=== PATIENT | female | born 1950 | race Caucasian/White ===

== ENCOUNTER 2017-01-10 07:47 | Emergency (ER) | payer OTHER ==
--- NOTE | 2017-01-10 08:02 | EDM.PDOC ---
ED HPI Trauma - General Chief Complaint: Trauma Stated Complaint: BY AMBULANCE Time Seen by Provider: 01/10/17 08:01 Source: Reports: Patient, EMS, Old records, RN, RN notes reviewed History Limitations: Reports: No limitations - History of Present Illness INITIAL COMMENTS - FREE TEXT/NARRATIVE: Arrives from home by ambulance with reports that pt became lightheaded and fell off of the toilet this morning. Pt arrives in C-collar, on long spine board, fully immobilized. Pt reports she became dizzy while on the commode and fell. She c/o neck pain and left ankle pain. She reports that she hit her head, but did not get knocked out. She also has increase in her chronic left knee pain. Pt reports that she has been out of meclizine and has been having vertigo spells over the past several days. She does not think that she was lightheaded or had a syncopal event. Denies headache, chest pain, palpitations, or shortness of breath. Symptom Onset Date: 01/10/17 Symptom Onset Time: 07:00 (approx.) Occurred When: this morning Occurred Where: home Method of Injury: fall Severity: moderate Pain/Injury Location: Reports: head, neck, lower extremity, left Consciousness: Reports: remembers incident, remembers coming to hosp, unsure Associated Symptoms: Reports: no other symptoms Allergies/ADRs: Allergies No Known Allergies Allergy (Verified 04/27/14 11:43) Home Medications: Ambulatory Orders Aspirin [[place] Aspirin] 81 mg PO DAILY 04/27/14 [Confirmed 06/24/15] Beta-Carotene(A) W-C & E/Min [Vision Vitamins] 1 tab PO DAILY 04/27/14 [ Confirmed 06/24/15] Calcium Carbonate [Calcium] 500 mg PO DAILY 04/27/14 [Confirmed 06/24/15] FA/Lycopene/Lut/MV,Ca,Iron,Min [Centrum] 1 tab PO DAILY 04/27/14 [Confirmed ] Lisinopril 10 mg PO DAILY 04/27/14 [Confirmed 06/24/15] Pantoprazole Sodium [Pantoprazole Sodium] 40 mg PO DAILY 04/27/14 [Confirmed ] Warfarin Sodium [Jantoven] 3 mg PO DAILY 04/27/14 [Confirmed 06/24/15] Warfarin Sodium [Jantoven] 6 mg PO DAILY 04/27/14 [Confirmed 06/24/15] Zolpidem [Ambien] 5 mg PO DAILY 04/27/14 [Confirmed 06/24/15] Past Medical History Cardiovascular History: Reports: Heart valve replacement (Aortic), Hypertension Gastrointestinal History: Reports: GERD Musculoskeletal History: Reports: Arthritis, RA Neurological History: Reports: Vertigo - Past Surgical History Other Cardiovascular Surgeries/Procedures: Whipple, artifical valve Social & Family History - Family History Family Medical History: Noncontributory - Tobacco Use Smoking Status *Q: Former Smoker Tobacco Use Within Last Twelve Months: Cigarettes Years of Tobacco use: 25 Second Hand Smoke Exposure: No - Alcohol Use Alcohol Use History: No - Recreational Drug Use Recreational Drug Use: No - Living Situation & Occupation Living situation: Reports: , with spouse Occupation: retired Review of Systems - Review of Systems Review Of Systems: ROS reveals no pertinent complaints other than HPI. ED EXAM, TRAUMA (MAJOR/MULTI) - Physical Exam Exam: See Below Text/Narrative:: PRIMARY TRAUMA SURVEY: Arrives in full immobilization on long spinal board, c- collar w/head blocked and strapped. Pt awake, alert, oriented to person, place, and date. Patent nasal and oral airways. Conversant with clear speech. Spontaneous respirations, with lungs CTA B/L. Good color, no cyanosis, intact peripheral pulses at all 4 distal extremities, normal capillary refill time at all four extremities distal digits. Heart RRR, murmur w/mech. click, no rub. No bleeding. No upper or right lower extremity pain, obvious deformity, lacerations , abrasions, swelling, bruising, discoloration, or other signs of injury. Left knee tender to palpation, swollen, normal color, nl temp, no bruising, skin intact. Yesi pelvis intact, stable and non-tender. Abdomen benign to exam. Chest non-tender anteriorly, no flail chest, crepitus, or subcutaneous emphysema. CN II-XII intact. B/L shoulder and lateral upper arm to elbow subjective numbness to light and sharp touch R>>L, with mild generalized motor weakness of the Rt upper extremity, no other motor or sensory neuro. deficits. Skin clean, dry. Superficial abrasion to Rt forehead. Pt was logged rolled with maintenance of c-spine immobilization, shirt was cut free from back. No visible injury to back, no thoracic or lumbar vertebral yesi tenderness. Posterior neck tenderness throughout C-spine soft tissues and vert. bones. Long spine board removed and pt returned via log roll to supine position on firm foam padded ER gurney. SECONDARY TRAUMA SURVEY FOLLOWS: Exam Limited By: No limitations General Appearance: alert, WD/WN, no apparent distress Head: normocephalic, facial abrasions (Rt forehead). No: active bleeding Eyes: bilateral eye: EOMI, normal inspection, PERRL Ears: normal external exam, normal canal, hearing grossly normal, normal TMs Nose: normal inspection, normal mucousa, no blood Throat/Mouth: Normal inspection, Normal lips, Normal teeth, Normal gums, Normal oropharynx, Normal voice, No airway compromise Neck: normal alignment, limited range of motion, muscle spasm, painful range of motion, paraspinous muscle tender, spinous processes tender, other (C-spine cleared by CT scan) Cardiovascular: normal peripheral pulses, regular rate, rhythm, no edema, no gallop, no JVD, no rub, systolic murmur (with mech. click) Respiratory/Chest: no respiratory distress, lungs clear, normal breath sounds, no accessory muscle use, chest non-tender GI/Abdominal: normal bowel sounds, soft, non tender, no organomegaly, no distention, no abnormal bruit, no mass (Female) Exam: Deferred Rectal (Female) Exam: Deferred Back: full range of motion, normal inspection, non-tender Extremities: no evidence of injury, normal range of motion, non-tender, no pedal edema, pelvis stable Neurologic: emergency response technician II-XII nml as tested, no motor/sensory deficits, alert, normal mood/affect, oriented x 3 Skin: Normal color, Warm/dry - Nabil Coma Score Best Eye Response ([place]): (4) open spontaneously Best Verbal Response ([place]): (5) oriented Best Motor Response ([place]): (6) obeys commands Nabil Total: 15 ED TRAUMA PROCEDURES - Splinting Left Lower Extremity Splint site: ankle Pre-procedure NV status: normal Post-procedure NV status: normal Splint material: other (YUNG) Splint design: other (YUNG) Applied & form fitted by: nurse Provider post-splint application NV check: NV status normal, good position Complications: Yes EKG INTERPRETATION EKG Date: 01/10/17 Time: 09:33 Rhythm: other (SR) Rate (beats/min): 61 Max: normal P-wave: present QRS: normal ST-T: other (borderline T-wave abnormalities) QT: normal Comparison: NA - no prior EKG Course - Vital Signs Last Recorded V/S: Last Vital Signs Temp 35.9 C 01/10/17 08:49 Pulse 67 01/10/17 08:49 Resp 16 01/10/17 08:49 BP 110/35 L 01/10/17 08:49 Pulse Ox 96 01/10/17 08:49 - Orders/Labs/Meds Orders: Active Orders 24 hr Category Date Time Status EKG 12 Lead [EKG Documentation Completion] [] STAT Care 01/10/17 08:10 Active Peripheral IV Care [RC] . DIRECTED Care 01/10/17 08:10 Active CULTURE URINE [RM] Stat Lab 01/10/17 10:09 Ordered Sodium Chloride 0.9% [Saline Flush] Med 01/10/17 08:09 Active 10 ml FLUSH ASDIRECTED PRN Peripheral IV Insertion Adult [OM.PC] Stat Oth 01/10/17 08:10 Ordered Medication Orders Sodium Chloride (Saline Flush) 10 ml FLUSH ASDIRECTED PRN PRN Reason: Keep Vein Open Last Admin: 01/10/17 09:15 Dose: 10 ml Labs: Laboratory Tests 01/10/17 01/10/17 01/10/17 Range/Units 08:16 08:16 08:16 WBC 17.5 H (5.0-10.0) 10^3/uL RBC 4.10 L (4.2-5.4) 10^6/uL Hgb 13.4 (12.0-16.0) g/dL Hct 40.2 (37.0-47.0) % MCV 98.0 (80-100) fL MCH 32.7 (27.0-34.0) pg MCHC 33.3 (33.0-35.0) g/dL Plt Count 195 (150-450) 10^3/uL Neut % (Auto) 89.4 H (42.2-75.2) % Lymph % (Auto) 2.7 L (20.5-50.1) % Story % (Auto) 7.1 (2-8) % Eos % (Auto) 0.7 L (1.0-3.0) % Baso % (Auto) 0.1 (0.0-1.0) % PT 28.9 H (9.0-12.0) SEC INR 2.9 H (0.9-1.2) APTT 35.6 H (22.0-34.0) SEC Sodium 139 (135-145) mmol/L Potassium 4.3 (3.6-5.0) mmol/L Chloride 105 (101-111) mmol/L Carbon Dioxide 22.0 (21.0-31.0) mmol/L Anion Gap 16.3 BUN 21 H (7-18) mg/dL Creatinine 1.1 (0.6-1.3) mg/dL Est Cr Clr Drug Dosing TNP Estimated GFR (MDRD) 49 BUN/Creatinine Ratio 19.09 Glucose 124 H (74-105) mg/dL Calcium 9.8 (8.4-10.2) mg/dl Total Bilirubin 0.8 (0.2-1.0) mg/dL AST 42 (10-42) IU/L ALT 29 (10-60) IU/L Alkaline Phosphatase 69 (42-121) IU/L Troponin I < 0.02 (0.00-0.02) ng/ml B-Natriuretic Peptide 70 (0-100) pg/ml Total Protein 7.2 (6.7-8.2) g/dl Albumin 4.6 (3.2-5.5) g/dl Globulin 2.6 Albumin/Globulin Ratio 1.77 Amylase 110 H (28-100) U/L Lipase 33 (22-51) U/L Urine Color (YELLOW) Urine Appearance (CLEAR) Urine pH (5.0-9.0) Ur Specific [place] (1.005-1.030) Urine Protein (NEGATIVE) Urine Glucose (UA) (NEGATIVE) Urine Ketones (NEGATIVE) Urine Occult Blood (NEGATIVE) Urine Nitrite (NEGATIVE) Urine Bilirubin (NEGATIVE) Urine Urobilinogen (0.2-1.0) mg/dL Ur Leukocyte Esterase (NEGATIVE) Urine RBC /HPF Urine WBC (0-5/HPF) /HPF Ur Epithelial Cells /HPF Urine Bacteria (0-FEW/HPF) /HPF Urine Opiates Screen (NEGATIVE) Ur Oxycodone Screen (NEGATIVE) Urine Methadone Screen (NEGATIVE) Ur Barbiturates Screen (NEGATIVE) U Tricyclic Antidepress (NEGATIVE) Ur Phencyclidine Scrn (NEGATIVE) Ur Amphetamine Screen (NEGATIVE) U Methamphetamines Scrn (NEGATIVE) Urine MDMA Screen (NEGATIVE) U Benzodiazepines Scrn (NEGATIVE) Urine Cocaine Screen (NEGATIVE) U Marijuana (THC) Screen (NEGATIVE) Ethyl Alcohol < 5 mg/dL 01/10/17 01/10/17 Range/Units 09:48 09:48 WBC (5.0-10.0) 10^3/uL RBC (4.2-5.4) 10^6/uL Hgb (12.0-16.0) g/dL Hct (37.0-47.0) % MCV (80-100) fL MCH (27.0-34.0) pg MCHC (33.0-35.0) g/dL Plt Count (150-450) 10^3/uL Neut % (Auto) (42.2-75.2) % Lymph % (Auto) (20.5-50.1) % Story % (Auto) (2-8) % Eos % (Auto) (1.0-3.0) % Baso % (Auto) (0.0-1.0) % PT (9.0-12.0) SEC INR (0.9-1.2) APTT (22.0-34.0) SEC Sodium (135-145) mmol/L Potassium (3.6-5.0) mmol/L Chloride (101-111) mmol/L Carbon Dioxide (21.0-31.0) mmol/L Anion Gap BUN (7-18) mg/dL Creatinine (0.6-1.3) mg/dL Est Cr Clr Drug Dosing Estimated GFR (MDRD) BUN/Creatinine Ratio Glucose (74-105) mg/dL Calcium (8.4-10.2) mg/dl Total Bilirubin (0.2-1.0) mg/dL AST (10-42) IU/L ALT (10-60) IU/L Alkaline Phosphatase (42-121) IU/L Troponin I (0.00-0.02) ng/ml B-Natriuretic Peptide (0-100) pg/ml Total Protein (6.7-8.2) g/dl Albumin (3.2-5.5) g/dl Globulin Albumin/Globulin Ratio Amylase (28-100) U/L Lipase (22-51) U/L Urine Color Dark yellow (YELLOW) Urine Appearance Turbid (CLEAR) Urine pH 6.0 (5.0-9.0) Ur Specific [place] 1.015 (1.005-1.030) Urine Protein Negative (NEGATIVE) Urine Glucose (UA) Negative (NEGATIVE) Urine Ketones Negative (NEGATIVE) Urine Occult Blood Trace-intact H (NEGATIVE) Urine Nitrite Positive H (NEGATIVE) Urine Bilirubin Negative (NEGATIVE) Urine Urobilinogen 0.2 (0.2-1.0) mg/dL Ur Leukocyte Esterase Moderate H (NEGATIVE) Urine RBC 5-10 H /HPF Urine WBC >100 H (0-5/HPF) /HPF Ur Epithelial Cells Rare /HPF Urine Bacteria Many H (0-FEW/HPF) /HPF Urine Opiates Screen Negative (NEGATIVE) Ur Oxycodone Screen Negative (NEGATIVE) Urine Methadone Screen Negative (NEGATIVE) Ur Barbiturates Screen Negative (NEGATIVE) U Tricyclic Antidepress Negative (NEGATIVE) Ur Phencyclidine Scrn Negative (NEGATIVE) Ur Amphetamine Screen Negative (NEGATIVE) U Methamphetamines Scrn Negative (NEGATIVE) Urine MDMA Screen Negative (NEGATIVE) U Benzodiazepines Scrn Negative (NEGATIVE) Urine Cocaine Screen Negative (NEGATIVE) U Marijuana (THC) Screen Negative (NEGATIVE) Ethyl Alcohol mg/dL Meds: Medications Generic Name Dose Route Start Last Admin Trade Name Freq PRN Reason Stop Dose Admin Sodium Chloride 10 ml 01/10/17 08:09 01/10/17 09:15 Saline Flush FLUSH 10 ml ASDIRECTED PRN Administration Keep Vein Open Discontinued Medications Generic Name Dose Route Start Last Admin Trade Name Freq PRN Reason Stop Dose Admin Sodium Chloride 1,000 mls @ 999 mls/hr 01/10/17 09:00 01/10/17 09:15 Normal Saline IV 01/10/17 10:00 999 mls/hr .BOLUS ONE Administration Ceftriaxone Sodium 1 gm/ 50 mls @ 100 mls/hr 01/10/17 10:10 Sodium Chloride IV 01/10/17 10:39 ONETIME ONE Pt declines pain medication. - Radiology Interpretation Free Text/Narrative:: XRay left ankle, and left knee: no fractures per Rad. report. CT Head: no IC hemorrhage, see Rad. report. CT C-spine: no fractures, see Rad. report. CT Results Date: 01/10/17 - Re-Assessments/Exams Free Text/Narrative Re-Assessment/Exam: 01/10/17 11:07 I explained the exam findings, results of all diagnostic tests, working diagnosis, and any potential or additionally considered diagnoses, treatment/ disposition plan, self/home care instructions, rational for the diagnosis/ treatment plan/disposition plan, anticipated course of illness, and follow up instructions to the pt and/or pts family or guardian. The pt and/or pts family or guardian acknowledges understanding of the above explanation(s), and of the signs and symptoms which should prompt the return of the pt to the ER should those or any other concerning symptoms develop. Departure - Departure Time of Disposition: 11:08 Disposition: Home, Self-Care 01 Condition: fair Clinical Impression: Fall as cause of accidental injury at home as place of occurrence, Vertigo UTI (urinary tract infection) Qualifiers: Urinary tract infection type: site unspecified Hematuria presence: without hematuria Qualified Code(s): N39.0 - Urinary tract infection, site not specified Abrasion of forehead Qualifiers: Encounter type: initial encounter Qualified Code(s): S00.81XA - Abrasion of other part of head, initial encounter Ankle sprain Qualifiers: Encounter type: initial encounter Involved ligament of ankle: unspecified ligament Laterality: left Qualified Code(s): S93.402A - Sprain of unspecified ligament of left ankle, initial encounter Neck strain Qualifiers: Encounter type: initial encounter Qualified Code(s): S16.1XXA - Strain of muscle, fascia and tendon at neck level, initial encounter Instructions: Abrasion, [id number], Ankle Sprain, [id number], Urinary Tract Infection, Adult, [id number], Concussion, Adult, [id number] Referrals: Cali Hernández MD [Primary Care Provider] - Forms: ED Department Discharge Additional Instructions: Rx: Cipro 500mg Rx: Meclizine 25mg Use walker until ankle pain resolves and you are steady on your feet. Follow up for Protime/INR lab in 2 to 3 days and see your doctor for recheck. Return to ER if worse at any time. - My Orders Last 24 Hours: My Active Orders 01/10/17 08:09 Sodium Chloride 0.9% [Saline Flush] 10 ml FLUSH ASDIRECTED PRN 01/10/17 08:10 EKG 12 Lead [EKG Documentation Completion] [RC] STAT Peripheral IV Care [RC] . DIRECTED Peripheral IV Insertion Adult [OM.PC] Stat 01/10/17 10:09 CULTURE URINE [RM] Stat - Assessment/Plan Last 24 Hours: My Active Orders 01/10/17 08:09 Sodium Chloride 0.9% [Saline Flush] 10 ml FLUSH ASDIRECTED PRN 01/10/17 08:10 EKG 12 Lead [EKG Documentation Completion] [RC] STAT Peripheral IV Care [RC] . DIRECTED Peripheral IV Insertion Adult [OM.PC] Stat 01/10/17 10:09 CULTURE URINE [RM] Stat
[2017-01-10] MEDS ORDERED: Sodium Chloride 0.9% 10 ML Syringe FLUSH PRN (08:09)
[2017-01-10 08:45] LABS: CHLORIDE,CL 105 mmol/L (101-111); SODIUM,NA 139 mmol/L (135-145)
[2017-01-10 08:51] VITALS: BP 110/35
--- NOTE | 2017-01-10 08:59 | CR ---
Clinical history: 66-year-old female injured fall. Interpretation: AP/lateral views left knee confirm some chronic mild reactive arthritic changes thic kening involving the medial knee joint compartment and patellofemoral joint. No sign of joint effusion, left knee fracture dislocation or radiopaque loose joint body. No foreign bodies.
--- NOTE | 2017-01-10 08:59 | CR ---
Clinical history: 66-year-old female injured left from fall (anticoagulant). Interpretation: AP supine portable chest (sternotomy wires and dressing down snaps). Normal cardiac silhouette and pulmonary vascularity. No alveolar edema or dependent effusion. No lung mass, hilar lymphadenopathy or focal lobar pneumonia. No atelectasis/collapse. No pneumothorax. CONCLUSION: No acute cardiopulmonary abnormality.
[2017-01-10] MEDS ORDERED: Sodium Chloride 0.9% 1,000 ML IV ONE (09:00)
--- NOTE | 2017-01-10 09:00 | CT ---
Clinical history: 66-year-old female head trauma associated with fall (patient on anticoagulants). Scan technique: Volume acquisition of data emergency unenhanced CT scan cervical spine obtained with patient lying supine on the Siemens multi slice CT scanner [place], [place]. All data archived in the PACS system for storage, reformatting, study. Interpretation: 1. Reversal of usual cervical lordosis associated with chronic multilevel cervical disc disease i.e. interspace narrowing, endplate sclerosis and exuberant hypertrophic marginal/uncinate spur formatio n C4-5, C5-6 and C6-7 level (bony fusion of the latter). 2. No sign of prevertebral soft tissue swelling, acute cervical fracture or spondylolisthesis. 3. Unenhanced cervical spinal cord appears "draped" over the posterior cervical vertebra (apex at C5 ) increasing the possibility of cord contusion. Clinical? 4. Chronic reactive arthritic changes but no sign of jump locked facets. 5. Sternoclavicular joints symmetrically intact. Normal first ribs. Lung apices clear. CONCLUSION: Chronic abnormalities cervical spine. No acute fracture.
--- NOTE | 2017-01-10 09:01 | CR ---
Clinical history: 66-year-old female left ankle pain associated with bathroom fall. Interpretation: Bimalleolar soft tissue swelling. No sign of left ankle fracture or disruption of the tibiotalar mortise joint symmetry. (Tiny heel spur at insertion plantar aponeurosis base of the os calcis). CONCLUSION: Sprain. No fracture or dislocation left ankle.
--- NOTE | 2017-01-10 09:14 | CT ---
Clinical history: 66-year-old anticoagulated (Coumadin) hypertensive 156 pound female with an acute head injury associated with bathroom fall. Scan technique: Volume acquisition of data emergency unenhanced CT scan of the head obtained with pa tient lying supine on the Siemens multi slice scanner [facility]. All data archived in the PAC system for storage and study (bone/brain windows). Interpretation: Abnormal..... But no acute new intracranial abnormality I i.e. unchanged. 1. Uniformly thick bony calvarium without sign of skull fracture, underlying brain contusion or acut e abnormal extracerebral/intracranial epidural or subdural hematoma. 2. 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 ("ballooning" left lateral ventricle, unchanged) 3. Scattered smaller microvascular ischemic lesions periventricular white matter both cerebral hemis pheres but no signs of acute intracerebral, intraventricular or subarachnoid bleed. 4. No new supratentorial or posterior fossa mass lesion. No hydrocephalus. 5. Physiologic midline pineal and symmetric choroid plexus calcifications. Cerebellum and brainstem unremarkable. 6. Symmetric clear pneumatization of the mastoid and paranasal sinuses. Midline nasal septum.
[2017-01-10] MEDS ORDERED: cefTRIAXone 1 GM in Sodium Chloride 0.9% 50 ML IV ONE (10:10)
--- NOTE | 2017-01-11 07:17 | EKG ---
01/10/2017- LATANYA FABIAN - EKG done on a 66-year-old female showing sinus rhythm, normal axis, heart rate of 61 beats per minute. No acute ST wave changes. Normal intervals. [facility] /[id number]
== END 2017-01-10 11:55 | disposition home or self-care (01) ==
LOC: DL.ED 07:47
DX: S16.1XXA Strain of muscle, fascia and tendon at neck level, initial encounter (principal); S93.402A Sprain of unspecified ligament of left ankle, initial encounter; S00.81XA Abrasion of other part of head, initial encounter; N39.0 Urinary tract infection, site not specified; I10 Essential (primary) hypertension; K21.9 Gastro-esophageal reflux disease without esophagitis; M06.9 Rheumatoid arthritis, unspecified; M19.90 Unspecified osteoarthritis, unspecified site; Z79.899 Other long term (current) drug therapy; Z79.82 Long term (current) use of aspirin; Z87.891 Personal history of nicotine dependence; W18.11XA Fall from or off toilet without subsequent striking against object, initial encounter; Y92.009 Unspecified place in unspecified non-institutional (private) residence as the place of occurrence of the external cause
CPT/HCPCS: 36415; 70450; 71010; 72125; 73560; 73610; 80053; 80305; 81001; 82150; 83690; 83880; 84484; 85025; 85610; 85730; 87086; 93005; 93010; 96361; 96365; 99285; G0480; J0696; J7030; J7050; 87088; 87186

== ENCOUNTER 2019-07-20 09:08 | Emergency (ER) | payer OTHER, MEDICARE ==
--- NOTE | 2019-07-20 09:24 | EDM.PDOC ---
ED HPI GENERAL MEDICAL PROBLEM - General Chief Complaint: Back Pain or Injury Stated Complaint: L LEG [id number] Time Seen by Provider: 07/20/19 09:23 Source of Information: Reports: Patient, Old Records, RN, RN Notes Reviewed History Limitations: Reports: No Limitations - History of Present Illness INITIAL COMMENTS - FREE TEXT/NARRATIVE: Pt presents from home by POV with c/o severe sciatica type pain from the low back through the left buttock to the left ankle/heel. Pt reports Hx of chronic low back pain with DDD, and Hx of remote surgery at L4/L5. She states she has had epidural steroid injections without relief. Recently she has been seeing an acls specialist and has been referred to a pain specialist but hasn't been seen there. She denies saddle area numbness, loss of bowel or bladder control, or motor weakness. Duration: Week(s): (3), Constant, Getting Worse Location: Reports: Back, Lower Extremity, Left Quality: Reports: Ache, Burning, Same as Previous Episode, Sharp Severity: Severe Improves with: Reports: None Worsens with: Reports: None Associated Symptoms: Reports: No Other Symptoms Treatments GUNNER'S MATE M: Reports: Acetaminophen, NSAIDS, Other Medication(s) - Related Data Allergies Allergy/AdvReac Type Severity Reaction Status Date / Time No Known Allergies Allergy Verified 04/27/14 11:43 Home Meds: Home Meds Aspirin [[place] Aspirin] 81 mg PO DAILY 04/27/14 [History] Beta-Carotene(A) W-C & E/Min [Vision Vitamins] 1 tab PO DAILY 04/27/14 [History] Calcium Carbonate [Calcium] 500 mg PO DAILY 04/27/14 [History] FA/Lycopene/Lut/MV,Ca,Iron,Min [Centrum] 1 tab PO DAILY 04/27/14 [History] Lisinopril 10 mg PO DAILY 04/27/14 [History] Pantoprazole Sodium 40 mg PO DAILY 04/27/14 [History] Warfarin Sodium [Jantoven] 3 mg PO DAILY 04/27/14 [History] Warfarin Sodium [Jantoven] 6 mg PO DAILY 04/27/14 [History] Zolpidem [Ambien] 5 mg PO DAILY 04/27/14 [History] Past Medical History Cardiovascular History: Reports: Heart Valve Replacement, Hypertension Gastrointestinal History: Reports: GERD Musculoskeletal History: Reports: Arthritis, Back Pain, Chronic, RA Neurological History: Reports: Vertigo - Past Surgical History Other Cardiovascular Surgeries/Procedures: Whipple, artifical valve Social & Family History - Family History Family Medical History: Noncontributory - Living Situation & Occupation Living situation: Reports: , with Spouse Occupation: Retired ED ROS GENERAL - Review of Systems Review Of Systems: ROS reveals no pertinent complaints other than HPI. ED EXAM,LOWER BACK PAIN/INJURY - Physical Exam Exam: See Below Exam Limited By: No Limitations General Appearance: Alert, No Apparent Distress, Mild Distress (Due to pain) Throat/Mouth: Normal Voice Head: Atraumatic, Normocephalic Neck: Normal Inspection Cardiovascular: Normal Peripheral Pulses GI/Abdominal: Normal Bowel Sounds, Soft, Non-Tender, No Organomegaly, No Distention, No Abnormal Bruit, No Mass Back Exam: Decreased Range of Motion (Lumbar), Paraspinal Tenderness (mild, lower lumbar). No: CVA Tenderness (L), CVA Tenderness (R), Vertebral Tenderness Extremities: Normal Range of Motion, Normal Capillary Refill, Leg Pain (Left). No: Joint Swelling, Naima's Sign Neurological: Alert, Normal Mood/Affect, Normal Dorsiflexion, Normal Plantar Flexion, No Motor/Sensory Deficits, Oriented x 3, Straight Leg Raise (L), Difficulty Walking (Due to pain). No: Saddle Anesthesia Psychiatric: Tearful Skin Exam: Warm, Dry, Intact, Normal Color, No Rash Course - Orders/Labs/Meds Meds: Medications Discontinued Medications Generic Name Dose Route Start Last Admin Trade Name Tobiasq PRN Reason Stop Dose Admin Hydrocodone Bitart/Acetaminophen 1 tab 07/20/19 09:30 [place] 325-5 Mg PO 07/20/19 09:31 ONETIME ONE Dexamethasone 8 mg 07/20/19 09:28 Dexamethasone IM 07/20/19 09:29 ONETIME ONE Departure - Departure Time of Disposition: 09:34 Disposition: Home, Self-Care 01 Condition: Good Clinical Impression: Left lumbar radiculopathy - Discharge Information *PRESCRIPTION DRUG MONITORING PROGRAM REVIEWED*: No *COPY OF PRESCRIPTION DRUG MONITORING REPORT IN PATIENT NIKOLAI: No Instructions: Lumbosacral Radiculopathy Forms: ED Department Discharge Additional Instructions: Rx: Decadron (Dexamethasone) 4mg Rx: [place] (Hydrocodone APAP) 5mg/325mg *Do not drive while under the influence of this medication. Use a stool softener or eat prunes, and drink plenty of water to prevent constipation while taking [place] for pain. Follow up in clinic as planned.
[2019-07-20] MEDS ORDERED: Dexamethasone 4 MG/ML SDV IM ONE (09:28)
[2019-07-20] MEDS ORDERED: Acetaminophen/HYDROcodone 325-5 MG Tab PO ONE (09:30)
[2019-07-20 09:44] VITALS: BP 125/71; PULSE 63
== END 2019-07-20 10:12 | disposition home or self-care (01) ==
LOC: DL.ED 09:08
DX: M54.16 Radiculopathy, lumbar region (principal); I10 Essential (primary) hypertension; K21.9 Gastro-esophageal reflux disease without esophagitis; Z79.82 Long term (current) use of aspirin; Z79.899 Other long term (current) drug therapy; Z79.01 Long term (current) use of anticoagulants
CPT/HCPCS: 96372; 99283; A9270; J1100

== ENCOUNTER 2019-08-11 09:46 | Emergency (ER) | payer OTHER, MEDICARE ==
[2019-08-11 09:56] VITALS: BP 106/93; PULSE 97
[2019-08-11 11:18] LABS: ANION GAP 13.2; CHLORIDE,CL 100 mmol/L (101-111); SODIUM,NA 135 mmol/L (135-145)
[2019-08-11] MEDS ORDERED: Ciprofloxacin 500 MG Tab PO ONE (13:11)
[2019-08-11] MEDS ORDERED: HYDROmorphone 1 MG/ML Syringe IVPUSH ONE (13:12)
--- NOTE | 2019-08-11 13:16 | EDM.PDOC ---
Scribed by Regina Vasquez 08/11/19 1316 for Zander Tompkins PA ED HPI GENERAL MEDICAL PROBLEM - General Chief Complaint: Lower Extremity Injury/Pain Stated Complaint: LEFT SIDE PAIN Time Seen by Provider: 08/11/19 10:23 Source of Information: Reports: Patient, RN, RN Notes Reviewed History Limitations: Reports: No Limitations - History of Present Illness INITIAL COMMENTS - FREE TEXT/NARRATIVE: Patient is a 69-year-old female patient who presents to the ER with left sided pain with sciatica to the left leg pain. At 7 a.m. this morning patient took Dilaudid 1.5 pills and didn't help much. Two days the patient took 2 pills which did not help much either. She has been on steroids in the past. She has not been doing PT. Patient also states she has a lump in her buttocks and in knee. Patient was hospitalized here in July and transferred to [facility] in [place] on 07/29/19. She had a neurosurgical evaluation who recommended a surgical oncology eval at [facility] for her multiple pulmonary nodules. She was discharged from [facility] on 08/02/19 with p.o. Dilaudid, Fentanyl, Gabapentin, Lisinopril and Levothyroxine. Patient's primary care provider is Heather Chavis who prescribed Fentanyl 25 mcg and patient is to follow up with her. Onset: Gradual Duration: Getting Worse Location: Reports: Back, Lower Extremity, Left Quality: Reports: Ache Severity: Severe Improves with: Reports: None Worsens with: Reports: None Associated Symptoms: Reports: No Other Symptoms Left Leg Pain Score (Numeric/FACES): 9 - Related Data Allergies Allergy/AdvReac Type Severity Reaction Status Date / Time No Known Allergies Allergy Verified 08/11/19 09:56 Home Meds: Home Meds FA/Lycopene/Lut/MV,Ca,Iron,Min [Centrum] 1 tab PO DAILY 04/27/14 [History] Lisinopril 2.5 mg PO DAILY 04/27/14 [History] Pantoprazole Sodium 40 mg PO BID 04/27/14 [History] Zolpidem [Ambien] 5 mg PO DAILY 04/27/14 [History] Acetaminophen [Tylenol Extra Strength] 500 mg PO Q6HR PRN 07/25/19 [History] Aspirin [Ecotrin EC] 325 mg PO DAILY 07/25/19 [History] Ferrous Sulfate 325 mg PO DAILY 07/25/19 [History] Levothyroxine 25 mcg PO DAILY 07/25/19 [History] Ascorbate Calcium [Vitamin C] 500 mg PO DAILY 07/29/19 [History] Calcium Carbonate/Vitamin D3 [Calcium 600 + Vit D 400 Softgl] 1 each PO DAILY [History] Potassium Chloride 10 meq PO DAILY 07/29/19 [History] fentaNYL [Duragesic] 50 mcg TRDERM Q72H patch 07/30/19 [Rx] Gabapentin [Neurontin] 300 mg PO TID 08/11/19 [History] HYDROmorphone [Dilaudid] 2 mg PO Q4H PRN 08/11/19 [History] Past Medical History HEENT History: Reports: Impaired Vision Other HEENT History: wears glasses Cardiovascular History: Reports: Heart Valve Replacement, Hypertension Respiratory History: Reports: None Gastrointestinal History: Reports: GERD Genitourinary History: Reports: Other (See Below) (chronic kidney disease III) 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: Musculoskeletal History: Reports: Arthritis, Back Pain, Chronic, Osteoarthritis , RA, Other (See Below) ( steroid dependence) Neurological History: Reports: CVA, Vertigo Psychiatric History: Reports: None Endocrine/Metabolic History: Reports: Hypothyroidism Hematologic History: Reports: None Immunologic History: Reports: None Oncologic (Cancer) History: Reports: None Dermatologic History: Reports: None - Infectious Disease History Infectious Disease History: Reports: Chicken Pox, Shingles - Past Surgical History Head Surgeries/Procedures: Reports: None HEENT Surgical History: Reports: Tonsillectomy Cardiovascular Surgical History: Reports: Valve Replacement, Other (See Below) Other Cardiovascular Surgeries/Procedures: Whipple, artifical valve GI Surgical History: Reports: Colonoscopy Neurological Surgical History: Reports: Lumbar Spine Other Neurological Surgeries/Procedures: fused Musculoskeletal Surgical History: Reports: Other (See Below) Other Musculoskeletal Surgeries/Procedures:: Back Surgery Fused L4-L5 Social & Family History - Family History Family Medical History: Noncontributory - Tobacco Use Smoking Status *Q: Never Smoker Second Hand Smoke Exposure: No - Caffeine Use Caffeine Use: Reports: Tea - Recreational Drug Use Recreational Drug Use: No - Living Situation & Occupation Living situation: Reports: , with Spouse Occupation: Retired Review of Systems - Review of Systems Review Of Systems: Comprehensive ROS is negative, except as noted in HPI. ED EXAM, GENERAL - Physical Exam Exam: See Below Exam Limited By: No Limitations General Appearance: Other (pain left hip. Tearful. ) Eye Exam: Bilateral Eye: EOMI, Normal Inspection, PERRL Ears: Normal External Exam, Normal Canal, Hearing Grossly Normal, Normal TMs Nose: Normal Inspection, Normal Mucosa, No Blood Throat/Mouth: Normal Inspection, Normal Lips, Normal Teeth, Normal Gums, Normal Oropharynx, Normal Voice, No Airway Compromise Head: Atraumatic, Normocephalic Neck: Normal Inspection, Supple, Non-Tender, Full Range of Motion Respiratory/Chest: No Respiratory Distress, Lungs Clear, Normal Breath Sounds, No Accessory Muscle Use, Chest Non-Tender Cardiovascular: Normal Peripheral Pulses, Regular Rate, Rhythm, No Edema, No Gallop, No JVD, No Murmur, No Rub GI/Abdominal: Normal Bowel Sounds, Soft, Non-Tender, No Organomegaly, No Distention, No Abnormal Bruit, No Mass (Female) Exam: Deferred Rectal (Female) Exam: Deferred Back Exam: Other (left lower back pain with sciatica to left lower extremity) Extremities: Other (as above) Neurological: Alert, Oriented, CN II-XII Intact, Normal Cognition, Normal Gait, Normal Reflexes, No Motor/Sensory Deficits Psychiatric: Normal Affect, Normal Mood Skin Exam: Warm, Dry, Intact, Normal Color, No Rash Lymphatic: No Adenopathy Course - Vital Signs Last Recorded V/S: Last Vital Signs Temp 36.2 C 08/11/19 09:50 Pulse 97 08/11/19 09:50 Resp 18 08/11/19 09:50 BP 106/93 H 08/11/19 09:50 Pulse Ox 97 08/11/19 09:50 - Orders/Labs/Meds Orders: Active Orders 24 hr Category Date Time Status CULTURE URINE [RM] Stat Lab 08/11/19 12:04 Received HYDROmorphone [Dilaudid] Med 08/11/19 13:12 Once 1 mg IVPUSH ONETIME ONE Medication Orders Hydromorphone HCl (Dilaudid) 1 mg IVPUSH ONETIME ONE Stop: 08/11/19 13:13 Labs: Laboratory Tests 08/11/19 08/11/19 08/11/19 Range/Units 10:44 10:44 12:04 WBC 9.2 (5.0-10.0) 10^3/uL RBC 4.25 (4.2-5.4) 10^6/uL Hgb 13.1 (12.0-16.0) g/dL Hct 39.6 (37.0-47.0) % MCV 93.2 (80-100) fL MCH 30.8 (27.0-34.0) pg MCHC 33.1 (33.0-35.0) g/dL Plt Count 234 (150-450) 10^3/uL Neut % (Auto) 73.3 (42.2-75.2) % Lymph % (Auto) 12.3 L (20.5-50.1) % Moca % (Auto) 10.3 H (2-8) % Eos % (Auto) 3.5 H (1.0-3.0) % Baso % (Auto) 0.6 (0.0-1.0) % Sodium 135 (135-145) mmol/L Potassium 4.2 (3.6-5.0) mmol/L Chloride 100 L (101-111) mmol/L Carbon Dioxide 26.0 (21.0-31.0) mmol/L Anion Gap 13.2 BUN 16 (7-18) mg/dL Creatinine 0.8 (0.6-1.3) mg/dL Est Cr Clr Drug Dosing 51.01 mL/min Estimated GFR (MDRD) > 60 BUN/Creatinine Ratio 20.00 Glucose 106 H (74-105) mg/dL Calcium 9.8 (8.4-10.2) mg/dl Total Bilirubin 0.6 (0.2-1.0) mg/dL AST 20 (10-42) IU/L ALT 26 (10-60) IU/L Alkaline Phosphatase 101 (42-121) IU/L Total Protein 7.2 (6.7-8.2) g/dl Albumin 3.8 (3.2-5.5) g/dl Globulin 3.4 Albumin/Globulin Ratio 1.12 Urine Color Yellow (YELLOW) Urine Appearance Cloudy (CLEAR) Urine pH 5.5 (5.0-9.0) Ur Specific Blue 1.015 (1.005-1.030) Urine Protein Negative (NEGATIVE) Urine Glucose (UA) Negative (NEGATIVE) Urine Ketones Negative (NEGATIVE) Urine Occult Blood Trace-intact H (NEGATIVE) Urine Nitrite Positive H (NEGATIVE) Urine Bilirubin Negative (NEGATIVE) Urine Urobilinogen 1.0 (0.2-1.0) mg/dL Ur Leukocyte Esterase Large H (NEGATIVE) Urine RBC 5-10 H /HPF Urine WBC >100 H (0-5/HPF) /HPF Ur Epithelial Cells Few (NOT SEEN) /HPF Urine Bacteria Many H (0-FEW/HPF) /HPF Urine Opiates Screen (NEGATIVE) Ur Oxycodone Screen (NEGATIVE) Urine Methadone Screen (NEGATIVE) Ur Barbiturates Screen (NEGATIVE) U Tricyclic Antidepress (NEGATIVE) Ur Phencyclidine Scrn (NEGATIVE) Ur Amphetamine Screen (NEGATIVE) U Methamphetamines Scrn (NEGATIVE) Urine MDMA Screen (NEGATIVE) U Benzodiazepines Scrn (NEGATIVE) Urine Cocaine Screen (NEGATIVE) U Marijuana (THC) Screen (NEGATIVE) 08/11/19 Range/Units 12:04 WBC (5.0-10.0) 10^3/uL RBC (4.2-5.4) 10^6/uL Hgb (12.0-16.0) g/dL Hct (37.0-47.0) % MCV (80-100) fL MCH (27.0-34.0) pg MCHC (33.0-35.0) g/dL Plt Count (150-450) 10^3/uL Neut % (Auto) (42.2-75.2) % Lymph % (Auto) (20.5-50.1) % Moca % (Auto) (2-8) % Eos % (Auto) (1.0-3.0) % Baso % (Auto) (0.0-1.0) % Sodium (135-145) mmol/L Potassium (3.6-5.0) mmol/L Chloride (101-111) mmol/L Carbon Dioxide (21.0-31.0) mmol/L Anion Gap BUN (7-18) mg/dL Creatinine (0.6-1.3) mg/dL Est Cr Clr Drug Dosing mL/min Estimated GFR (MDRD) BUN/Creatinine Ratio Glucose (74-105) mg/dL Calcium (8.4-10.2) mg/dl Total Bilirubin (0.2-1.0) mg/dL AST (10-42) IU/L ALT (10-60) IU/L Alkaline Phosphatase (42-121) IU/L Total Protein (6.7-8.2) g/dl Albumin (3.2-5.5) g/dl Globulin Albumin/Globulin Ratio Urine Color (YELLOW) Urine Appearance (CLEAR) Urine pH (5.0-9.0) Ur Specific Blue (1.005-1.030) Urine Protein (NEGATIVE) Urine Glucose (UA) (NEGATIVE) Urine Ketones (NEGATIVE) Urine Occult Blood (NEGATIVE) Urine Nitrite (NEGATIVE) Urine Bilirubin (NEGATIVE) Urine Urobilinogen (0.2-1.0) mg/dL Ur Leukocyte Esterase (NEGATIVE) Urine RBC /HPF Urine WBC (0-5/HPF) /HPF Ur Epithelial Cells (NOT SEEN) /HPF Urine Bacteria (0-FEW/HPF) /HPF Urine Opiates Screen Positive H (NEGATIVE) Ur Oxycodone Screen Positive H (NEGATIVE) Urine Methadone Screen Negative (NEGATIVE) Ur Barbiturates Screen Negative (NEGATIVE) U Tricyclic Antidepress Negative (NEGATIVE) Ur Phencyclidine Scrn Negative (NEGATIVE) Ur Amphetamine Screen Negative (NEGATIVE) U Methamphetamines Scrn Negative (NEGATIVE) Urine MDMA Screen Negative (NEGATIVE) U Benzodiazepines Scrn Negative (NEGATIVE) Urine Cocaine Screen Negative (NEGATIVE) U Marijuana (THC) Screen Negative (NEGATIVE) Meds: Medications Generic Name Dose Route Start Last Admin Trade Name Freq PRN Reason Stop Dose Admin Hydromorphone HCl 1 mg 08/11/19 13:12 Dilaudid IVPUSH 08/11/19 13:13 ONETIME ONE Discontinued Medications Generic Name Dose Route Start Last Admin Trade Name Freq PRN Reason Stop Dose Admin Ciprofloxacin 500 mg 08/11/19 13:11 Ciprofloxacin Hcl PO 08/11/19 13:12 ONETIME ONE Departure - Departure Time of Disposition: 13:13 Disposition: Home, Self-Care 01 Condition: Fair Clinical Impression: Chronic low back pain with left-sided sciatica Qualifiers: Back pain laterality: left Qualified Code(s): M54.42 - Lumbago with sciatica, left side; G89.29 - Other chronic pain UTI (urinary tract infection) Qualifiers: Urinary tract infection type: site unspecified Hematuria presence: with hematuria Qualified Code(s): N39.0 - Urinary tract infection, site not specified ; R31.9 - Hematuria, unspecified - Discharge Information *PRESCRIPTION DRUG MONITORING PROGRAM REVIEWED*: Not Applicable *COPY OF PRESCRIPTION DRUG MONITORING REPORT IN PATIENT NIKOLAI: Not Applicable Instructions: Urinary Tract Infection, Adult, [id number], Chronic Back Pain, [id number] Forms: ED Department Discharge Care Plan Goals: The patient was advised of the examination and lab results during the visit. The patient was given an oral dose of Cipro for her urinary tract infection and an IV dose of Dilaudid for her back pain while in the ED. The patient was discharged with a script for Cipro (500 mg) #6 to take 1 by mouth 2 times per day. The patient should follow-up with her primary care facility for continued evaluation of her back pain. If the patient has any additional symptoms or concerns, the patient should follow-up with her primary care facility or return to the emergency department. - My Orders Last 24 Hours: My Active Orders 08/11/19 12:04 CULTURE URINE [RM] Stat 08/11/19 13:12 HYDROmorphone [Dilaudid] 1 mg IVPUSH ONETIME ONE - Assessment/Plan Last 24 Hours: My Active Orders 08/11/19 12:04 CULTURE URINE [RM] Stat 08/11/19 13:12 HYDROmorphone [Dilaudid] 1 mg IVPUSH ONETIME ONE I have read and agree with the documentation that has been completed regarding this visit. By signing this record, I attest that the documentation was completed in my physical presence and is an accurate record of the encounter.
== END 2019-08-11 13:30 | disposition home or self-care (01) ==
LOC: DL.ED 09:46
DX: M54.42 Lumbago with sciatica, left side (principal); N39.0 Urinary tract infection, site not specified; R31.9 Hematuria, unspecified; I12.9 Hypertensive chronic kidney disease with stage 1 through stage 4 chronic kidney disease, or unspecified chronic kidney disease; N18.3 Chronic kidney disease, stage 3 (moderate); E03.9 Hypothyroidism, unspecified; Z86.73 Personal history of transient ischemic attack (TIA), and cerebral infarction without residual deficits; Z79.82 Long term (current) use of aspirin; Z79.890 Hormone replacement therapy; Z79.899 Other long term (current) drug therapy
CPT/HCPCS: 36415; 80053; 80305; 81001; 85025; 87086; 87088; 87186; 96374; 99283; A9270; J1170

== ENCOUNTER 2019-08-22 12:30 | Emergency (ER) | payer OTHER, MEDICARE ==
[2019-08-22] MEDS ORDERED: HYDROmorphone 1 MG/ML Syringe IVPUSH ONE (13:02)
[2019-08-22] MEDS: Sodium Chloride 0.9% 10 ML Syringe FLUSH PRN ×2 (13:06→13:07)
[2019-08-22 13:19] VITALS: BP 106/63; PULSE 74
--- NOTE | 2019-08-22 13:20 | EDM.PDOC ---
ED HPI GENERAL MEDICAL PROBLEM - General Chief Complaint: Back Pain or Injury Stated Complaint: [facility] Time Seen by Provider: 08/22/19 12:45 Source of Information: Reports: Patient History Limitations: Reports: No Limitations - History of Present Illness INITIAL COMMENTS - FREE TEXT/NARRATIVE: This 69 yo female patient was brought to the ED by [facility] due to increased lower back pain radiating to her left lower extremity. The patient reports her lower back pain has been getting worse despite increased pain medications. The patient reports her pain is a 10/10 with any movement. The patient is scheduled to be seen at the [facility] in September for continued evaluation of her lower back and her pain. The patient has been working with Heather Chavis (PCP) for temporary symptom relief. The patient reports her pain got so bad today that she had to call the ambulance to bring her here. The patient reports she has been taking her pain medications as directed and has been changing her Fentanyl patch as directed. Onset: Unknown/Unsure Duration: Constant, Getting Worse Location: Reports: Back (lower back with radiation to the left lower extremity) Quality: Reports: Ache, Sharp, Stabbing Severity: Severe Improves with: Reports: None Worsens with: Reports: None Context: Reports: Other Associated Symptoms: Reports: No Other Symptoms Back Pain Score (Numeric/FACES): 9 - Related Data Allergies Allergy/AdvReac Type Severity Reaction Status Date / Time No Known Allergies Allergy Verified 08/22/19 12:44 Home Meds: Home Meds FA/Lycopene/Lut/MV,Ca,Iron,Min [Centrum] 1 tab PO DAILY 04/27/14 [History] Lisinopril 2.5 mg PO DAILY 04/27/14 [History] Pantoprazole Sodium 40 mg PO BID 04/27/14 [History] Zolpidem [Ambien] 5 mg PO DAILY 04/27/14 [History] Acetaminophen [Tylenol Extra Strength] 500 mg PO Q6HR PRN 07/25/19 [History] Aspirin [Ecotrin EC] 325 mg PO DAILY 07/25/19 [History] Ferrous Sulfate 325 mg PO DAILY 07/25/19 [History] Levothyroxine 25 mcg PO DAILY 07/25/19 [History] Ascorbate Calcium [Vitamin C] 500 mg PO DAILY 07/29/19 [History] Calcium Carbonate/Vitamin D3 [Calcium 600 + Vit D 400 Softgl] 1 each PO DAILY [History] Potassium Chloride 10 meq PO DAILY 07/29/19 [History] fentaNYL [Duragesic] 50 mcg TRDERM Q72H patch 07/30/19 [Rx] Gabapentin [Neurontin] 300 mg PO TID 08/11/19 [History] HYDROmorphone [Dilaudid] 3 mg PO Q4H PRN 08/11/19 [History] Past Medical History HEENT History: Reports: Impaired Vision Other HEENT History: wears glasses Cardiovascular History: Reports: Heart Valve Replacement, Hypertension Respiratory History: Reports: None Gastrointestinal History: Reports: GERD Genitourinary History: Reports: Other (See Below) 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: Musculoskeletal History: Reports: Arthritis, Back Pain, Chronic, Osteoarthritis , RA, Other (See Below) Neurological History: Reports: CVA, Vertigo Psychiatric History: Reports: None Endocrine/Metabolic History: Reports: Hypothyroidism Hematologic History: Reports: None Immunologic History: Reports: None Oncologic (Cancer) History: Reports: None Dermatologic History: Reports: None - Infectious Disease History Infectious Disease History: Reports: Chicken Pox, Shingles - Past Surgical History Head Surgeries/Procedures: Reports: None HEENT Surgical History: Reports: Tonsillectomy Cardiovascular Surgical History: Reports: Valve Replacement, Other (See Below) Other Cardiovascular Surgeries/Procedures: Whipple, artifical valve GI Surgical History: Reports: Colonoscopy Neurological Surgical History: Reports: Lumbar Spine Other Neurological Surgeries/Procedures: fused Musculoskeletal Surgical History: Reports: Other (See Below) Other Musculoskeletal Surgeries/Procedures:: Back Surgery Fused L4-L5 Social & Family History - Family History Family Medical History: Noncontributory - Tobacco Use Smoking Status *Q: Never Smoker Second Hand Smoke Exposure: No - Caffeine Use Caffeine Use: Reports: Soda - Recreational Drug Use Recreational Drug Use: No - Living Situation & Occupation Living situation: Reports: , with Spouse Occupation: Retired ED ROS GENERAL - Review of Systems Review Of Systems: Comprehensive ROS is negative, except as noted in HPI. ED EXAM,LOWER BACK PAIN/INJURY - Physical Exam Exam: See Below Exam Limited By: No Limitations General Appearance: Alert, WD/WN, Severe Distress Eye Exam: Bilateral Eye: EOMI, Normal Inspection, PERRL Ears: Normal External Exam, Normal Canal, Hearing Grossly Normal, Normal TMs Nose: Normal Inspection, Normal Mucosa, No Blood Throat/Mouth: Normal Inspection, Normal Lips, Normal Teeth, Normal Gums, Normal Oropharynx, Normal Voice, No Airway Compromise Head: Atraumatic, Normocephalic Neck: Normal Inspection, Supple, Non-Tender, Full Range of Motion Respiratory/Chest: No Respiratory Distress, Lungs Clear, Normal Breath Sounds, No Accessory Muscle Use, Chest Non-Tender Cardiovascular: Normal Peripheral Pulses, Regular Rate, Rhythm, No Edema, No Gallop, No JVD, No Murmur, No Rub (Female) Exam: Deferred Rectal (Female) Exam: Deferred Back Exam: Decreased Range of Motion, Paraspinal Tenderness, Vertebral Tenderness Extremities: Leg Pain (pain radiating down into her left lower extremity) Neurological: Alert, Normal Mood/Affect, Normal Dorsiflexion, CN II-XII Intact, Normal Plantar Flexion, Normal Gait, Normal Reflexes, No Motor/Sensory Deficits , Oriented x 3 Psychiatric: Normal Affect, Normal Mood Skin Exam: Warm, Dry, Intact, Normal Color, No Rash Lymphatic: No Adenopathy Course - Vital Signs Last Recorded V/S: Last Vital Signs Temp 36.4 C 08/22/19 12:31 Pulse 74 08/22/19 13:18 Resp 16 08/22/19 13:18 BP 106/63 08/22/19 13:18 Pulse Ox 96 08/22/19 13:18 - Orders/Labs/Meds Orders: Active Orders 24 hr Category Date Time Status Sodium Chloride 0.9% [Saline Flush] Med 08/22/19 13:02 Active 10 ml FLUSH ASDIRECTED PRN Saline Lock Insert [OM.PC] Routine Oth 08/22/19 13:02 Ordered Medication Orders Sodium Chloride (Saline Flush) 10 ml FLUSH ASDIRECTED PRN PRN Reason: Keep Vein Open Last Admin: 08/22/19 13:07 Dose: 10 ml Admin: 08/22/19 13:06 Dose: 10 ml Meds: Medications Generic Name Dose Route Start Last Admin Trade Name Freq PRN Reason Stop Dose Admin Sodium Chloride 10 ml 08/22/19 13:02 08/22/19 13:07 Saline Flush FLUSH 10 ml ASDIRECTED PRN Administration Keep Vein Open Discontinued Medications Generic Name Dose Route Start Last Admin Trade Name Freq PRN Reason Stop Dose Admin Fentanyl 25 mcg 08/22/19 14:39 08/22/19 14:53 Sublimaze IVPUSH 08/22/19 14:40 25 mcg ONETIME ONE Administration Hydromorphone HCl 1 mg 08/22/19 13:02 08/22/19 13:06 Dilaudid IVPUSH 08/22/19 13:03 1 mg ONETIME ONE Administration Departure - Departure Time of Disposition: 15:11 Disposition: Home, Self-Care 01 Condition: Fair Clinical Impression: Chronic low back pain with left-sided sciatica Qualifiers: Back pain laterality: left Qualified Code(s): M54.42 - Lumbago with sciatica, left side - Discharge Information *PRESCRIPTION DRUG MONITORING PROGRAM REVIEWED*: Yes *COPY OF PRESCRIPTION DRUG MONITORING REPORT IN PATIENT NIKOLAI: Yes Forms: ED Department Discharge Care Plan Goals: The patient was advised of the examination and CT results during the visit. The patient was given an IV dose of Dilaudid and an IV dose of Fentanyl while in the ED. The patient was encouraged to continue to take her medications as prescribed. The patient should contact her primary care facility for any additional symptoms. The patient was encouraged to continue to attempt to move and be active, but avoid excessive stress in her back. If the patient has any additional symptoms or concerns, the patient should either return to the emergency department or visit her primary care facility. Sepsis Event Note - Evaluation Sepsis Screening Result: No Definite Risk - Focused Exam Vital Signs: Vital Signs Temp Pulse Resp BP Pulse Ox 08/22/19 13:18 74 16 106/63 96 08/22/19 12:31 36.4 C 82 16 94 L Date Exam was Performed: 08/22/19 Time Exam was Performed: 15:10 - My Orders Last 24 Hours: My Active Orders 08/22/19 13:02 Sodium Chloride 0.9% [Saline Flush] 10 ml FLUSH ASDIRECTED PRN Saline Lock Insert [OM.PC] Routine - Assessment/Plan Last 24 Hours: My Active Orders 08/22/19 13:02 Sodium Chloride 0.9% [Saline Flush] 10 ml FLUSH ASDIRECTED PRN Saline Lock Insert [OM.PC] Routine
[2019-08-22] MEDS ORDERED: fentaNYL 100 MCG/2 ML SDV IVPUSH ONE (14:39)
--- NOTE | 2019-08-22 15:01 | CT ---
EXAMINATION: Lumbar Spine wo Cont SEX: Female AGE: 69 years CLINICAL HISTORY: 69-year-old female in the emergency department complaining of severe low back pain (sciatica to the LEFT) despite heavy doses of analgesia. MRI 17 June 2019 for RIGHT sided low back pain and sciatica reveal "Chronic multilevel disc degeneration/hypertrophic spondylosis, old posterior fusion L2-3 (Lorenz aydee on the right), and focal stenosis L4-5. Subsequent MRI 22 July 2019 (LEFT back pain) suggested "possible infection versus postoperative changes L2 and L3 vertebral bodies; paracentral disc herniation L3-4 on the LEFT". Follow-up evaluation please patient with intractable pain. SCAN TECHNIQUE: Volume acquisition of data from an unenhanced CT scan of the lumbar spine obtained with the patient lying supine on the Siemens multislice scanner [place], [place]. All data archived in the PACS system for storage, reformatting axial/sagittal/coronal planes and study (bone and soft tissue windows). Comparison CTs June and July. INTERPRETATION: 1. Artificial intervertebral disc filling the L2-3 interspace. Lorenz aydee anchored posteriorly, on the right bridges L2-3 bodies. 2. Generalized osteopenia and accelerated focal demineralization posteriorly bodies of L2 and L3 vertebra UNCHANGED presumably reflecting postoperative changes demonstrated on exam 22 July 2019, i.e., not infection. 3. No new signs of lumbar fracture, spondylolisthesis or abnormal intervertebral disc space narrowing. 4. No abnormal paraspinal soft tissue mass. 5. Focal lower lumbar spinal canal stenosis at the L4-5 level reflecting hypertrophy of the ligamentum flavum and disc "bulge". CONCLUSION: Multilevel disc degeneration; Postoperative changes L2 and 3; spinal stenosis L4-5. *Follow-up MRI at "[facility] appointment" September suggested for this complex patient with persistent pain. (Comparison MRI exam 04 October 2016, June, and 17 June 2019 available at this institution)
== END 2019-08-22 15:37 | disposition home or self-care (01) ==
LOC: DL.ED 12:30
DX: M54.42 Lumbago with sciatica, left side (principal); I10 Essential (primary) hypertension; K21.9 Gastro-esophageal reflux disease without esophagitis; E03.9 Hypothyroidism, unspecified; Z79.899 Other long term (current) drug therapy; Z86.73 Personal history of transient ischemic attack (TIA), and cerebral infarction without residual deficits; Z79.890 Hormone replacement therapy; Z79.82 Long term (current) use of aspirin
CPT/HCPCS: 72131; 96374; 96375; 99284; J1170; J3010

== ENCOUNTER 2019-09-08 12:20 | Emergency (ER) | payer OTHER, MEDICARE ==
[2019-09-08 12:49] VITALS: BP 121/88; PULSE 103
[2019-09-08] MEDS ORDERED: Ketorolac 30 MG/ML SDV IM ONE (13:58)
[2019-09-08] MEDS ORDERED: methylPREDNISolone Sodium Succinate 125 MG/2 ML SDV IM ONE (13:58)
--- NOTE | 2019-09-08 14:55 | EDM.PDOC ---
ED HPI GENERAL MEDICAL PROBLEM - General Chief Complaint: Lower Extremity Injury/Pain Stated Complaint: LEG PAIN Time Seen by Provider: 09/08/19 13:15 Source of Information: Reports: Patient, Family, RN, RN Notes Reviewed History Limitations: Reports: No Limitations - History of Present Illness INITIAL COMMENTS - FREE TEXT/NARRATIVE: patient presents to ER with complaint of chronic low back pain left leg pain, don't the left foot. Patient has had chronic pain for quite some time, has had multiple scans and tests performed. Patient is to be seen at [facility] on Monday. Patient was recently seen by her primary care provider, JACE Wilcox. Patient does take oral hydromorphone, has a fentanyl patch, and takes Percocet, and gabapentin. Patient states she has no muscle relaxants at home at this time. Patient crying in pain. Onset: Gradual Duration: Constant, Getting Worse Location: Reports: Back, Lower Extremity, Left Left Back Pain Score (Numeric/FACES): 10 - Related Data Allergies Allergy/AdvReac Type Severity Reaction Status Date / Time No Known Allergies Allergy Verified 08/22/19 12:44 Home Meds: Home Meds FA/Lycopene/Lut/MV,Ca,Iron,Min [Centrum] 1 tab PO DAILY 04/27/14 [History] Lisinopril 2.5 mg PO DAILY 04/27/14 [History] Pantoprazole Sodium 40 mg PO BID 04/27/14 [History] Zolpidem [Ambien] 5 mg PO DAILY 04/27/14 [History] Acetaminophen [Tylenol Extra Strength] 500 mg PO Q6HR PRN 07/25/19 [History] Aspirin [Ecotrin EC] 325 mg PO DAILY 07/25/19 [History] Ferrous Sulfate 325 mg PO DAILY 07/25/19 [History] Levothyroxine 25 mcg PO DAILY 07/25/19 [History] Ascorbate Calcium [Vitamin C] 500 mg PO DAILY 07/29/19 [History] Calcium Carbonate/Vitamin D3 [Calcium 600 + Vit D 400 Softgl] 1 each PO DAILY [History] Potassium Chloride 10 meq PO DAILY 07/29/19 [History] fentaNYL [Duragesic] 50 mcg TRDERM Q72H patch 07/30/19 [Rx] Gabapentin [Neurontin] 300 mg PO TID 08/11/19 [History] HYDROmorphone [Dilaudid] 3 mg PO Q4H PRN 08/11/19 [History] Past Medical History HEENT History: Reports: Impaired Vision Other HEENT History: wears glasses Cardiovascular History: Reports: Heart Valve Replacement, Hypertension Respiratory History: Reports: None Gastrointestinal History: Reports: GERD Genitourinary History: Reports: Other (See Below) 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: Musculoskeletal History: Reports: Arthritis, Back Pain, Chronic, Osteoarthritis , RA, Other (See Below) Neurological History: Reports: CVA, Vertigo Psychiatric History: Reports: None Endocrine/Metabolic History: Reports: Hypothyroidism Hematologic History: Reports: None Immunologic History: Reports: None Oncologic (Cancer) History: Reports: None Dermatologic History: Reports: None - Infectious Disease History Infectious Disease History: Reports: Chicken Pox, Shingles - Past Surgical History Head Surgeries/Procedures: Reports: None HEENT Surgical History: Reports: Tonsillectomy Cardiovascular Surgical History: Reports: Valve Replacement, Other (See Below) Other Cardiovascular Surgeries/Procedures: Whipple, artifical valve GI Surgical History: Reports: Colonoscopy Neurological Surgical History: Reports: Lumbar Spine Other Neurological Surgeries/Procedures: fused Musculoskeletal Surgical History: Reports: Other (See Below) Other Musculoskeletal Surgeries/Procedures:: Back Surgery Fused L4-L5 Social & Family History - Family History Family Medical History: Noncontributory - Tobacco Use Smoking Status *Q: Never Smoker Second Hand Smoke Exposure: No - Caffeine Use Caffeine Use: Reports: Coffee - Recreational Drug Use Recreational Drug Use: No - Living Situation & Occupation Living situation: Reports: , with Spouse Occupation: Retired Review of Systems - Review of Systems Review Of Systems: Comprehensive ROS is negative, except as noted in HPI. ED EXAM, GENERAL - Physical Exam Exam: See Below Exam Limited By: Physical Impairment General Appearance: Alert, WD/WN, Severe Distress Eye Exam: Bilateral Eye: EOMI, Normal Inspection Ears: Normal External Exam, Hearing Grossly Normal Nose: Normal Inspection Throat/Mouth: Normal Inspection, Normal Voice, No Airway Compromise Head: Atraumatic, Normocephalic Neck: Normal Inspection, Supple, Non-Tender, Full Range of Motion Respiratory/Chest: No Respiratory Distress, Lungs Clear, Normal Breath Sounds, No Accessory Muscle Use, Chest Non-Tender Cardiovascular: Normal Peripheral Pulses, Regular Rate, Rhythm, No Edema, No Gallop, No JVD, No Murmur, No Rub Peripheral Pulses: 1+: Dorsalis Pedis (L), Dorsalis Pedis (R) GI/Abdominal: Normal Bowel Sounds, Soft, Non-Tender (Female) Exam: Deferred Rectal (Female) Exam: Deferred Back Exam: Normal Inspection, Decreased Range of Motion, Muscle Spasm, Paraspinal Tenderness, Vertebral Tenderness Extremities: Normal Inspection, No Pedal Edema, Leg Pain (left leg), Limited Range of Motion (left leg,) Neurological: Alert, Oriented Psychiatric: Anxious, Tearful Skin Exam: Warm, Dry, Intact, Normal Color, No Rash Lymphatic: No Adenopathy Course - Vital Signs Last Recorded V/S: Last Vital Signs Temp 96.9 F 09/08/19 12:48 Pulse 103 H 09/08/19 12:48 Resp 24 H 09/08/19 12:48 BP 121/88 09/08/19 12:48 Pulse Ox 96 09/08/19 12:48 - Orders/Labs/Meds Meds: Medications Discontinued Medications Generic Name Dose Route Start Last Admin Trade Name Lindsay PRN Reason Stop Dose Admin Ketorolac Tromethamine 30 mg 09/08/19 13:58 09/08/19 14:19 Toradol IM 09/08/19 13:59 30 mg ONETIME ONE Administration Methylprednisolone Sodium Succinate 125 mg 09/08/19 13:58 09/08/19 14:20 Solu-Medrol IM 09/08/19 13:59 125 mg ONETIME ONE Administration Orphenadrine Citrate 60 mg 09/08/19 13:59 09/08/19 14:20 Norflex IM 09/08/19 14:00 60 mg ONETIME ONE Administration Departure - Departure Time of Disposition: 15:02 Disposition: Home, Self-Care 01 Condition: Fair Clinical Impression: Left lumbar radiculopathy, Neuropathy of left foot Lumbago with sciatica, left side Qualifiers: Chronicity: acute Back pain laterality: left Qualified Code(s): M54.42 - Lumbago with sciatica, left side - Discharge Information *PRESCRIPTION DRUG MONITORING PROGRAM REVIEWED*: No *COPY OF PRESCRIPTION DRUG MONITORING REPORT IN PATIENT NIKOLAI: No Instructions: Radicular Pain, Sciatica, [id number], Neuropathic Pain, Lumbosacral Radiculopathy Forms: ED Department Discharge Additional Instructions: RX: Flexeril Use already prescribed pain medications as directed Follow up with your primary care facility and [facility] Sepsis Event Note - Evaluation Sepsis Screening Result: No Definite Risk - Focused Exam Vital Signs: Vital Signs Temp Pulse Resp BP Pulse Ox 09/08/19 12:48 96.9 F 103 H 24 H 121/88 96 Date Exam was Performed: 09/08/19 Time Exam was Performed: 15:39
== END 2019-09-08 15:10 | disposition home or self-care (01) ==
LOC: DL.ED 12:20
DX: M54.16 Radiculopathy, lumbar region (principal); M54.42 Lumbago with sciatica, left side; G62.9 Polyneuropathy, unspecified; I10 Essential (primary) hypertension; Z79.82 Long term (current) use of aspirin; Z79.899 Other long term (current) drug therapy
CPT/HCPCS: 96372; 99283; J1885; J2360; J2930

== ENCOUNTER 2019-09-21 01:00 | Emergency (ER) | payer OTHER, MEDICARE ==
[2019-09-21 01:04] VITALS: BP 83/41; PULSE 101
--- NOTE | 2019-09-21 01:33 | EDM.PDOC ---
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 taking lot os Rx from pain and been weak no energy and unsteady and unable bear weight on legs. fell today onto left side again tonight and unable to lift her and called EMS. Left Leg Pain Score (Numeric/FACES): 9 - Related Data Allergies Allergy/AdvReac Type Severity Reaction Status Date / Time No Known Allergies Allergy Verified 08/22/19 12:44 Home Meds: Home Meds FA/Lycopene/Lut/MV,Ca,Iron,Min [Centrum] 1 tab PO DAILY 04/27/14 [History] Lisinopril 2.5 mg PO DAILY 04/27/14 [History] Pantoprazole Sodium 40 mg PO BID 04/27/14 [History] Zolpidem [Ambien] 5 mg PO DAILY 04/27/14 [History] Aspirin [Ecotrin EC] 325 mg PO DAILY 07/25/19 [History] Ferrous Sulfate 325 mg PO DAILY 07/25/19 [History] Levothyroxine 50 mcg PO DAILY 07/25/19 [History] Ascorbate Calcium [Vitamin C] 500 mg PO DAILY 07/29/19 [History] Potassium Chloride 10 meq PO DAILY 07/29/19 [History] Gabapentin [Neurontin] 300 mg PO TID 08/11/19 [History] HYDROmorphone [Dilaudid] 3 mg PO Q4H PRN 08/11/19 [History] Cyclobenzaprine HCl 10 mg PO TID PRN 09/21/19 [History] Past Medical History HEENT History: Reports: Impaired Vision Other HEENT History: wears glasses Cardiovascular History: Reports: Heart Valve Replacement, Hypertension Respiratory History: Reports: None Gastrointestinal History: Reports: GERD Genitourinary History: Reports: Other (See Below) 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: Musculoskeletal History: Reports: Arthritis, Back Pain, Chronic, Osteoarthritis , RA, Other (See Below) Neurological History: Reports: CVA, Vertigo Psychiatric History: Reports: None Endocrine/Metabolic History: Reports: Hypothyroidism Hematologic History: Reports: None Immunologic History: Reports: None Oncologic (Cancer) History: Reports: Other (See Below) Other Oncologic History: cancer in the left leg/hip area, does not know what kind of cancer Dermatologic History: Reports: None - Infectious Disease History Infectious Disease History: Reports: Chicken Pox, Shingles - Past Surgical History Head Surgeries/Procedures: Reports: None HEENT Surgical History: Reports: Tonsillectomy Cardiovascular Surgical History: Reports: Valve Replacement, Other (See Below) Other Cardiovascular Surgeries/Procedures: Whipple, artifical valve GI Surgical History: Reports: Colonoscopy Neurological Surgical History: Reports: Lumbar Spine Other Neurological Surgeries/Procedures: fused Musculoskeletal Surgical History: Reports: Other (See Below) Other Musculoskeletal Surgeries/Procedures:: Back Surgery Fused L4-L5 Social & Family History - Family History Family Medical History: Noncontributory - Tobacco Use Smoking Status *Q: Never Smoker Second Hand Smoke Exposure: No - Caffeine Use Caffeine Use: Reports: Coffee - Recreational Drug Use Recreational Drug Use: No - Living Situation & Occupation Living situation: Reports: , with Spouse Occupation: Retired Review of Systems - Review of Systems Review Of Systems: Comprehensive ROS is negative, except as noted in HPI. ED EXAM, GENERAL - Physical Exam Exam: See Below Exam Limited By: No Limitations General Appearance: Alert, WD/WN, Mild Distress, Other (discomfort) Eye Exam: Bilateral Eye: PERRL (pupils ess ER @ 4mm) Ears: Hearing Grossly Normal Throat/Mouth: Normal Voice, No Airway Compromise Head: Atraumatic Neck: Non-Tender, Full Range of Motion Respiratory/Chest: No Respiratory Distress Cardiovascular: Regular Rate, Rhythm GI/Abdominal: Soft, Non-Tender Extremities: Other (tender left hip region) Neurological: Alert, Normal Cognition Psychiatric: Flat Affect, Tearful Skin Exam: Warm, Dry, Normal Color Lymphatic: No Adenopathy Course - Vital Signs Last Recorded V/S: Last Vital Signs Temp 37.0 C 09/21/19 01:00 Pulse 101 H 09/21/19 01:00 Resp 18 09/21/19 01:00 BP 83/41 L 09/21/19 01:00 Pulse Ox 94 L 09/21/19 01:00 - Orders/Labs/Meds Orders: Active Orders 24 hr Category Date Time Status Urinary Catheter Assessment [RC] ASDIRECTED Care 09/21/19 03:25 Active Urinary Catheter Insertion [Insert Urinary Catheter] [ Care 09/21/19 03:30 Ordered OM.PC] Q24H Chest 1V Frontal [CR] Urgent Exams 09/21/19 02:59 Taken Sodium Chloride 0.9% [Normal Saline] 1,000 ml Med 09/21/19 04:29 Ordered IV .BOLUS Medication Orders Sodium Chloride (Normal Saline) 1,000 mls @ 500 mls/hr IV .BOLUS ONE Stop: 09/21/19 06:28 Last Admin: 09/21/19 04:28 Dose: 500 mls/hr Labs: Laboratory Tests 09/21/19 09/21/19 09/21/19 Range/Units 01:35 01:35 01:35 WBC 21.0 H (5.0-10.0) 10^3/uL RBC 4.51 (4.2-5.4) 10^6/uL Hgb 13.6 (12.0-16.0) g/dL Hct 40.3 (37.0-47.0) % MCV 89.4 D (80-100) fL MCH 30.2 (27.0-34.0) pg MCHC 33.7 (33.0-35.0) g/dL Plt Count 253 (150-450) 10^3/uL Neut % (Auto) 89.8 H (42.2-75.2) % Lymph % (Auto) 2.7 L (20.5-50.1) % [place] % (Auto) 7.0 (2-8) % Eos % (Auto) 0.3 L (1.0-3.0) % Baso % (Auto) 0.2 (0.0-1.0) % Sodium 132 L (135-145) mmol/L Potassium 3.8 (3.6-5.0) mmol/L Chloride 96 L (101-111) mmol/L Carbon Dioxide 24.0 (21.0-31.0) mmol/L Anion Gap 15.8 BUN 9 (7-18) mg/dL Creatinine 1.1 (0.6-1.3) mg/dL Est Cr Clr Drug Dosing 33.69 mL/min Estimated GFR (MDRD) 49 BUN/Creatinine Ratio 8.18 Glucose 121 H (74-105) mg/dL Lactic Acid 1.4 (0.5-2.0) mmol/L Calcium 9.1 (8.4-10.2) mg/dl Total Bilirubin 1.0 (0.2-1.0) mg/dL AST 26 (10-42) IU/L ALT 25 (10-60) IU/L Alkaline Phosphatase 114 (42-121) IU/L Troponin I < 0.02 (0.00-0.02) ng/ml Total Protein 6.9 (6.7-8.2) g/dl Albumin 3.7 (3.2-5.5) g/dl Globulin 3.2 Albumin/Globulin Ratio 1.16 Urine Color (YELLOW) Urine Appearance (CLEAR) Urine pH (5.0-9.0) Ur Specific [place] (1.005-1.030) Urine Protein (NEGATIVE) Urine Glucose (UA) (NEGATIVE) Urine Ketones (NEGATIVE) Urine Occult Blood (NEGATIVE) Urine Nitrite (NEGATIVE) Urine Bilirubin (NEGATIVE) Urine Urobilinogen (0.2-1.0) mg/dL Ur Leukocyte Esterase (NEGATIVE) 09/21/19 Range/Units 03:22 WBC (5.0-10.0) 10^3/uL RBC (4.2-5.4) 10^6/uL Hgb (12.0-16.0) g/dL Hct (37.0-47.0) % MCV (80-100) fL MCH (27.0-34.0) pg MCHC (33.0-35.0) g/dL Plt Count (150-450) 10^3/uL Neut % (Auto) (42.2-75.2) % Lymph % (Auto) (20.5-50.1) % [place] % (Auto) (2-8) % Eos % (Auto) (1.0-3.0) % Baso % (Auto) (0.0-1.0) % Sodium (135-145) mmol/L Potassium (3.6-5.0) mmol/L Chloride (101-111) mmol/L Carbon Dioxide (21.0-31.0) mmol/L Anion Gap BUN (7-18) mg/dL Creatinine (0.6-1.3) mg/dL Est Cr Clr Drug Dosing mL/min Estimated GFR (MDRD) BUN/Creatinine Ratio Glucose (74-105) mg/dL Lactic Acid (0.5-2.0) mmol/L Calcium (8.4-10.2) mg/dl Total Bilirubin (0.2-1.0) mg/dL AST (10-42) IU/L ALT (10-60) IU/L Alkaline Phosphatase (42-121) IU/L Troponin I (0.00-0.02) ng/ml Total Protein (6.7-8.2) g/dl Albumin (3.2-5.5) g/dl Globulin Albumin/Globulin Ratio Urine Color Yellow (YELLOW) Urine Appearance Clear (CLEAR) Urine pH 6.0 (5.0-9.0) Ur Specific [place] 1.010 (1.005-1.030) Urine Protein Negative (NEGATIVE) Urine Glucose (UA) Negative (NEGATIVE) Urine Ketones Negative (NEGATIVE) Urine Occult Blood Negative (NEGATIVE) Urine Nitrite Negative (NEGATIVE) Urine Bilirubin Negative (NEGATIVE) Urine Urobilinogen 0.2 (0.2-1.0) mg/dL Ur Leukocyte Esterase Negative (NEGATIVE) Meds: Medications Generic Name Dose Route Start Last Admin Trade Name Freq PRN Reason Stop Dose Admin Sodium Chloride 1,000 mls @ 500 mls/hr 09/21/19 04:29 09/21/19 04:28 Normal Saline IV 09/21/19 06:28 500 mls/hr .BOLUS ONE Administration Discontinued Medications Generic Name Dose Route Start Last Admin Trade Name Freq PRN Reason Stop Dose Admin Sodium Chloride 1,000 mls @ 999 mls/hr 09/21/19 01:57 09/21/19 02:00 Normal Saline IV 09/21/19 02:57 999 mls/hr .BOLUS ONE Administration - Re-Assessments/Exams Free Text/Narrative Re-Assessment/Exam: 09/21/19 04:[address] Nye who kindly accepted pt. Departure - Departure Time of Disposition: 04:42 Disposition: DC/Tfer to Acute Hospital 02 Condition: Fair Clinical Impression: Pneumonia Qualifiers: Pneumonia type: due to unspecified organism Laterality: bilateral Lung location : lower lobe of lung Qualified Code(s): J18.9 - Pneumonia, unspecified organism Hypotension Qualifiers: Hypotension type: unspecified hypotension type Qualified Code(s): I95.9 - Hypotension, unspecified Leg mass Qualifiers: Laterality: left Qualified Code(s): R22.42 - Localized swelling, mass and lump , left lower limb - Discharge Information Forms: Interfacility Transfer [facility] Sepsis Event Note - Evaluation Sepsis Screening Result: No Definite Risk - Focused Exam Vital Signs: Vital Signs Temp Pulse Resp BP Pulse Ox 09/21/19 01:00 37.0 C 101 H 18 83/41 L 94 L Date Exam was Performed: 09/21/19 Time Exam was Performed: 04:42 - My Orders Last 24 Hours: My Active Orders 09/21/19 02:59 Chest 1V Frontal [CR] Urgent 09/21/19 03:25 Urinary Catheter Assessment [RC] ASDIRECTED 09/21/19 03:30 Urinary Catheter Insertion [Insert Urinary Catheter] [OM.PC] Q24H 09/21/19 04:29 Sodium Chloride 0.9% [Normal Saline] 1,000 ml IV .BOLUS - Assessment/Plan Last 24 Hours: My Active Orders 09/21/19 02:59 Chest 1V Frontal [CR] Urgent 09/21/19 03:25 Urinary Catheter Assessment [RC] ASDIRECTED 09/21/19 03:30 Urinary Catheter Insertion [Insert Urinary Catheter] [OM.PC] Q24H 09/21/19 04:29 Sodium Chloride 0.9% [Normal Saline] 1,000 ml IV .BOLUS
[2019-09-21] MEDS ORDERED: Sodium Chloride 0.9% 1,000 ML IV ONE ×2 (01:57→04:29)
[2019-09-21 02:03] LABS: ANION GAP 15.8; CHLORIDE,CL 96 mmol/L (101-111); SODIUM,NA 132 mmol/L (135-145)
== END 2019-09-21 05:16 ==
LOC: DL.ED 01:00
DX: R22.42 Localized swelling, mass and lump, left lower limb (principal); J18.9 Pneumonia, unspecified organism; I95.9 Hypotension, unspecified; I10 Essential (primary) hypertension; K21.9 Gastro-esophageal reflux disease without esophagitis; E03.9 Hypothyroidism, unspecified; Z86.73 Personal history of transient ischemic attack (TIA), and cerebral infarction without residual deficits; Z79.899 Other long term (current) drug therapy; Z79.82 Long term (current) use of aspirin; Z85.830 Personal history of malignant neoplasm of bone
CPT/HCPCS: 36415; 51702; 71045; 72192; 73551; 80053; 81003; 83605; 84484; 85025; 96360; 96361; 99285; J7030; 99284

== ENCOUNTER 2019-11-18 08:54 | Emergency (ER) | payer OTHER, MEDICARE ==
[2019-11-18] MEDS ORDERED: Ondansetron 4 MG/2 ML SDV IVPUSH ONE (09:10)
[2019-11-18] MEDS ORDERED: Iopamidol 612 MG/ML 100 ML Bottle IVPUSH ONE (09:11)
--- NOTE | 2019-11-18 09:21 | PCM.SN ---
- Free Text/Narrative Note: Katie Neal is referred to ER for 3 episodes of vomiting this morning. No diarrhea. No fever. No new pain issues. 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 She recently completed 10 treatments of radiation to the tumor at [facility] in [place]. The radiation was done for pain management. Katie is currently on 200 mcg/hr Fentanyl every 72 hours, and hydromorphone 16 mg every 3 hours prn for pain. The radiation treatments have significantly reduced her previously uncontrolled pain, and she has been able to take less of the hydromorphone. The tumor has also caused severe neuropathic pain to the left leg due to sciatic nerve involvement; this pain has also improved since the RT. She continues on gabapentin 100 mg TID. Last week she met with Dr. Cadena by telemedicine to review her course. She was offered the choice of Hospice (given her metastatic disease) or chemotherapy. Katie has opted for chemotherapy. She has another telemedicine appointment tomorrow to review the results of an E-consult with Bryant regarding choices for the chemo. Her life expectancy is about six months. Even with the chemo, the sarcoma will not be curable, and it is not clear how much time the treatments will add to her life expectancy. Other past medical history: Recently treated for C. Difficile; completed 14 days of oral Vancomycin. Hypothyroidism. History of hypertension, now off all meds, BP controlled. Impression: Three episodes of vomiting this morning at home. Plan: refer to ER for further evaluation, given the complex history above. Case discussed with Dr. Herrera and Jo Ann Heredia RN. Request that CTAP and labs be done to further evaluate. Differential Diagnosis: 1. Gastroenteritis? Limited vomiting, no diarrhea. Family members are well. Recent discharge from detention, following last hospital admission. 2. Constipation/obstipation? On large doses of opioids for pain management due to the sarcoma. On daily Miralax. Stressed need for bowel management prior to discharge. 3. New complication of sarcoma? Last CTAP was done in July 2019. No intra- abdominal pathology at that time. Copies of CTAP results and most recent labs faxed to ER.
--- NOTE | 2019-11-18 09:22 | EDM.PDOC ---
<HerreraRei - Last Filed: 11/18/19 10:05> ED HPI GENERAL MEDICAL PROBLEM - General Chief Complaint: Gastrointestinal Problem Stated Complaint: Vomiting Time Seen by Provider: 11/18/19 09:10 - Related Data Allergies Allergy/AdvReac Type Severity Reaction Status Date / Time hydrocodone AdvReac Mild Nausea and Verified 11/18/19 09:06 Vomiting nitrofurantoin AdvReac Mild Nausea Verified 11/18/19 09:06 Home Meds: Home Meds Pantoprazole Sodium 40 mg PO BID 04/27/14 [History] Levothyroxine 50 mcg PO DAILY 07/25/19 [History] Acetaminophen [Acetaminophen Extra Strength] 2 tab PO TID PRN 11/18/19 [History] Gabapentin [Neurontin] 100 mg PO TID 11/18/19 [History] HYDROmorphone [Dilaudid] 16 mg PO Q3H PRN 11/18/19 [History] Lidocaine 5% [Lidoderm 5%] 1 patch TOP DAILY PRN 11/18/19 [History] fentaNYL [Duragesic] 200 mcg TD Q72H MDD 200 mcg/hr 11/18/19 [History] polyethylene glycoL 3350 [MiraLAX] 17 gm PO DAILY 11/18/19 [History] Course - Vital Signs Last Recorded V/S: Last Vital Signs Temp 98.2 F 11/18/19 08:54 Pulse 108 H 11/18/19 08:54 Resp 24 H 11/18/19 08:54 BP 115/66 11/18/19 08:54 Pulse Ox 95 11/18/19 08:54 - Orders/Labs/Meds Orders: Active Orders 24 hr Category Date Time Status Parikh Catheter Insertion [Insert Urinary Catheter] [OM. Care 11/18/19 12:30 Ordered PC] Q24H Urinary Catheter Assessment [RC] ASDIRECTED Care 11/18/19 12:26 Active Abdomen Pelvis w Cont [CT] Urgent Exams 11/18/19 09:11 Taken CULTURE BLOOD [BC] Stat Lab 11/18/19 09:26 Received Labs: Laboratory Tests 11/18/19 11/18/19 11/18/19 Range/Units 09:04 09:04 09:26 WBC 8.9 (5.0-10.0) 10^3/uL RBC 4.43 (4.2-5.4) 10^6/uL Hgb 12.9 (12.0-16.0) g/dL Hct 39.7 (37.0-47.0) % MCV 89.6 (80-100) fL MCH 29.1 (27.0-34.0) pg MCHC 32.5 L (33.0-35.0) g/dL Plt Count 168 D (150-450) 10^3/uL Neut % (Auto) 81.4 H (42.2-75.2) % Lymph % (Auto) 3.1 L (20.5-50.1) % Toombs % (Auto) 11.0 H (2-8) % Eos % (Auto) 4.2 H (1.0-3.0) % Baso % (Auto) 0.3 (0.0-1.0) % Sodium 137 (135-145) mmol/L Potassium 3.6 (3.6-5.0) mmol/L Chloride 101 (101-111) mmol/L Carbon Dioxide 24.0 (21.0-31.0) mmol/L Anion Gap 15.6 BUN 10 (7-18) mg/dL Creatinine 0.7 (0.6-1.3) mg/dL Est Cr Clr Drug Dosing 58.30 mL/min Estimated GFR (MDRD) > 60 BUN/Creatinine Ratio 14.28 Glucose 111 H (74-105) mg/dL Lactic Acid 1.5 (0.5-2.0) mmol/L Calcium 9.6 (8.4-10.2) mg/dl Total Bilirubin 0.8 (0.2-1.0) mg/dL AST 24 (10-42) IU/L ALT 25 (10-60) IU/L Alkaline Phosphatase 110 (42-121) IU/L Total Protein 7.1 (6.7-8.2) g/dl Albumin 3.7 (3.2-5.5) g/dl Globulin 3.4 Albumin/Globulin Ratio 1.09 Meds: Medications Discontinued Medications Generic Name Dose Route Start Last Admin Trade Name Freq PRN Reason Stop Dose Admin Hydromorphone HCl 0.5 mg 11/18/19 09:31 11/18/19 09:37 Dilaudid IVPUSH 11/18/19 09:32 0.5 mg ONETIME ONE Administration Hydromorphone HCl 1 mg 11/18/19 09:51 11/18/19 10:01 Dilaudid IVPUSH 11/18/19 09:52 1 mg ONETIME ONE Administration Hydromorphone HCl 1 mg 11/18/19 10:45 11/18/19 11:09 Dilaudid IVPUSH 11/18/19 10:46 1 mg ONETIME ONE Administration Hydromorphone HCl 0.5 mg 11/18/19 12:25 Dilaudid IVPUSH 11/18/19 12:26 ONETIME ONE Iopamidol 100 ml 11/18/19 09:11 11/18/19 10:07 Isovue-300 (61%) IVPUSH 11/18/19 09:12 75 ml ONETIME ONE Administration Ondansetron HCl 4 mg 11/18/19 09:10 11/18/19 09:14 Zofran IVPUSH 11/18/19 09:11 4 mg ONETIME ONE Administration - Re-Assessments/Exams Free Text/Narrative Re-Assessment/Exam: 11/18/19 10:06 I personally performed or re-performed the physical examination and medical decision making. I have verified all student documentation or findings, including history, physical exam and/or medical decision making. 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 Velazquez Sepsis Event Note - Focused Exam Vital Signs: Vital Signs Temp Pulse Resp BP Pulse Ox 11/18/19 08:54 98.2 F 108 H 24 H 115/66 95 Date Exam was Performed: 11/18/19 Time Exam was Performed: 10:06 <Gita Arreguin - Last Filed: 11/18/19 12:29> ED HPI GENERAL MEDICAL PROBLEM - General Source of Information: Reports: Patient History Limitations: Reports: No Limitations - History of Present Illness INITIAL COMMENTS - FREE TEXT/NARRATIVE: Patient presents to the ED by private vehicle with concerns of emesis X2 this am and intractable pain. The patient's daughter called the patients PCP, Dr. Velazquez this AM, who advised to be seen in the ED. The patient reports nausea, 2 episodes of emesis, left leg and back pain. Her last bowel movement was yesterday. She denies blood in the stool, abdominal pain, chest pain, or shortness of breath. The patient was recently treated for c. diff. with oral vancomycin. 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 She is not currently in any treatment. She does take several opioid medications for pain management. The patient reports intermittent use of these. She did take hydromorphone this AM for pain. 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: Other (see below) (fentanyl, hydromorphone) Back Pain Score (Numeric/FACES): 10 Right Leg Pain Score (Numeric/FACES): 10 Past Medical History HEENT History: Reports: Impaired Vision Other HEENT History: wears glasses Cardiovascular History: Reports: Heart Valve Replacement, Hypertension Respiratory History: Reports: None Gastrointestinal History: Reports: GERD Genitourinary History: Reports: Other (See Below) 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: Musculoskeletal History: Reports: Arthritis, Back Pain, Chronic, Osteoarthritis , RA, Other (See Below) Neurological History: Reports: CVA, Vertigo Psychiatric History: Reports: None Endocrine/Metabolic History: Reports: Hypothyroidism Hematologic History: Reports: None Immunologic History: Reports: None Oncologic (Cancer) History: Reports: Other (See Below) Other Oncologic History: cancer in the left leg/hip area, does not know what kind of cancer Dermatologic History: Reports: None - Infectious Disease History Infectious Disease History: Reports: Chicken Pox, Shingles - Past Surgical History Head Surgeries/Procedures: Reports: None HEENT Surgical History: Reports: Tonsillectomy Cardiovascular Surgical History: Reports: Valve Replacement, Other (See Below) Other Cardiovascular Surgeries/Procedures: Whipple, artifical valve GI Surgical History: Reports: Colonoscopy Neurological Surgical History: Reports: Lumbar Spine Other Neurological Surgeries/Procedures: fused Musculoskeletal Surgical History: Reports: Other (See Below) Other Musculoskeletal Surgeries/Procedures:: Back Surgery Fused L4-L5 Social & Family History - Family History Family Medical History: Noncontributory - Caffeine Use Caffeine Use: Reports: Coffee - Living Situation & Occupation Living situation: Reports: , with Spouse Occupation: Retired ED ROS GENERAL - Review of Systems Review Of Systems: See Below Constitutional: Denies: Fever, Chills Respiratory: Denies: Shortness of Breath, Wheezing, Cough Cardiovascular: Denies: Chest Pain, Palpitations GI/Abdominal: Reports: Nausea, Vomiting. Denies: Abdominal Pain, Black Stool, Bloody Stool, Constipation, Diarrhea, Hematochezia, Melena Musculoskeletal: Reports: Back Pain, Leg Pain (left leg) Skin: Reports: No Symptoms Neurological: Reports: No Symptoms ED EXAM, GI/ABD - Physical Exam Exam: See Below Exam Limited By: No Limitations General Appearance: Alert, Moderate Distress Head: Atraumatic, Normocephalic Neck: Normal Inspection Respiratory/Chest: No Respiratory Distress, Lungs Clear, Normal Breath Sounds Cardiovascular: Normal Peripheral Pulses, Regular Rate, Rhythm, No Murmur GI/Abdominal Exam: Normal Bowel Sounds, Soft, Non-Tender, No Distention Neurological: Alert, Oriented Skin Exam: Warm, Dry, Intact Course - Vital Signs Last Recorded V/S: Last Vital Signs Temp 98.2 F 11/18/19 08:54 Pulse 108 H 11/18/19 08:54 Resp 24 H 11/18/19 08:54 BP 115/66 11/18/19 08:54 Pulse Ox 95 11/18/19 08:54 - Orders/Labs/Meds Labs: Laboratory Tests 11/18/19 11/18/19 11/18/19 Range/Units 09:04 09:04 09:26 WBC 8.9 (5.0-10.0) 10^3/uL RBC 4.43 (4.2-5.4) 10^6/uL Hgb 12.9 (12.0-16.0) g/dL Hct 39.7 (37.0-47.0) % MCV 89.6 (80-100) fL MCH 29.1 (27.0-34.0) pg MCHC 32.5 L (33.0-35.0) g/dL Plt Count 168 D (150-450) 10^3/uL Neut % (Auto) 81.4 H (42.2-75.2) % Lymph % (Auto) 3.1 L (20.5-50.1) % Toombs % (Auto) 11.0 H (2-8) % Eos % (Auto) 4.2 H (1.0-3.0) % Baso % (Auto) 0.3 (0.0-1.0) % Sodium 137 (135-145) mmol/L Potassium 3.6 (3.6-5.0) mmol/L Chloride 101 (101-111) mmol/L Carbon Dioxide 24.0 (21.0-31.0) mmol/L Anion Gap 15.6 BUN 10 (7-18) mg/dL Creatinine 0.7 (0.6-1.3) mg/dL Est Cr Clr Drug Dosing 58.30 mL/min Estimated GFR (MDRD) > 60 BUN/Creatinine Ratio 14.28 Glucose 111 H (74-105) mg/dL Lactic Acid 1.5 (0.5-2.0) mmol/L Calcium 9.6 (8.4-10.2) mg/dl Total Bilirubin 0.8 (0.2-1.0) mg/dL AST 24 (10-42) IU/L ALT 25 (10-60) IU/L Alkaline Phosphatase 110 (42-121) IU/L Total Protein 7.1 (6.7-8.2) g/dl Albumin 3.7 (3.2-5.5) g/dl Globulin 3.4 Albumin/Globulin Ratio 1.09 - Radiology Interpretation Free Text/Narrative:: CT abdomen pelvis with contrast: Progression of left thigh/hip sarcoma. Noted lytic lesion of left sacral ala not present on exam 07/31/19. Possible destructive lesion of lateral left 6th rib. Pulmonary metastatic disease noted. - Re-Assessments/Exams Free Text/Narrative Re-Assessment/Exam: 11/18/19 12:26 Urinary catheter prior to departure. 0.5 dilaudid prior to departure Departure - Departure Time of Disposition: 12:28 Condition: Poor - Discharge Information *PRESCRIPTION DRUG MONITORING PROGRAM REVIEWED*: Not Applicable *COPY OF PRESCRIPTION DRUG MONITORING REPORT IN PATIENT NIKOLAI: Not Applicable Sepsis Event Note - Focused Exam Vital Signs: Vital Signs Temp Pulse Resp BP Pulse Ox 11/18/19 08:54 98.2 F 108 H 24 H 115/66 95 Date Exam was Performed: 11/18/19 Time Exam was Performed: 12:27
[2019-11-18] MEDS ORDERED: HYDROmorphone 0.5 MG/0.5 ML Syringe IVPUSH ONE ×2 (09:31→12:25)
[2019-11-18 09:33] LABS: ANION GAP 15.6; CHLORIDE,CL 101 mmol/L (101-111); SODIUM,NA 137 mmol/L (135-145)
[2019-11-18] MEDS ORDERED: HYDROmorphone 1 MG/ML Syringe IVPUSH ONE ×2 (09:51→10:45)
[2019-11-18 13:33] VITALS: BP 122/64; PULSE 94
== END 2019-11-18 13:50 | disposition home or self-care (01) ==
LOC: DL.ED 08:54
DX: C44.709 Unspecified malignant neoplasm of skin of left lower limb, including hip (principal); C78.00 Secondary malignant neoplasm of unspecified lung; C79.51 Secondary malignant neoplasm of bone; E03.9 Hypothyroidism, unspecified; K21.9 Gastro-esophageal reflux disease without esophagitis; I10 Essential (primary) hypertension; Z79.899 Other long term (current) drug therapy; Z86.73 Personal history of transient ischemic attack (TIA), and cerebral infarction without residual deficits; Z88.5 Allergy status to narcotic agent; Z88.8 Allergy status to other drugs, medicaments and biological substances
CPT/HCPCS: 36415; 51702; 74177; 80053; 83605; 85025; 87040; 96374; 96375; 96376; 99284; J1170; J2405; Q9967

== ENCOUNTER 2019-11-22 09:34 | Emergency (ER) | payer OTHER, MEDICARE ==
--- NOTE | 2019-11-22 07:38 | PCM.SN ---
- Free Text/Narrative Note: Referral to ED Reason for Referral: uncontrolled pain due to soft tissue sarcoma left thigh, metastatic to both lungs and spine. Katie Neal is a 69-year-old female, known to the ED staff. 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 It has metastasized to both lungs and several spinal vertebrae. She has had issues with uncontrolled pain in the left leg. The sarcoma has encased the sciatic nerve, causing the pain, as well as left foot drop. She recently completed 10 rounds of radiation therapy in [place] for palliative pain management. Immediately following the RadTx, her pain was significantly reduced. Her current pain regimen is Fentanyl 250 mcg/hr patches every 72 hours, and hydromorphone 16 mg po every 3 hours. I received a call from her daughter at 0640 this morning, stating that Katie had been up all night with uncontrolled pain. She had been giving her the oral hydromorphone every 3 hours. She will bring Katie to the ED for further evaluation. Her patches were due to be changed this morning; I instructed her to place an additional 50 mcg/hr patch for a total of 300 mcg/hr. She also gave Katie 24 mg of hydromorphone. She will be transported by ambulance. The case was discussed at length with YENNIFER Cage and Denny Villa RN. Evert is familiar with Mrs. Neal's case. We discussed various options (inpatient vs outpatient management) and medications. Admission to Hospice vs palliative chemotherapy has been discussed with Katie. At this point, she remains ambivalent about her decision. Impression: Recurrent issue with uncontrolled pain due to left lower extremity soft tissue sarcoma.
[2019-11-22 09:15] VITALS: BP 134/71; PULSE 93
[~2019-11-22 09:34] MED LIST: Dexamethasone 4 MG/ML SDV IVPUSH ONE; HYDROmorphone 1 MG/ML Syringe IVPUSH ONE; LORazepam 2 MG/ML SDV IVPUSH ONE; Sodium Chloride 0.9% 1,000 ML IV SCH
--- NOTE | 2019-11-22 09:34 | EDM.PDOC ---
ED HPI GENERAL MEDICAL PROBLEM - General Chief Complaint: General Stated Complaint: UNCONTROLLABLE PAIN Time Seen by Provider: 11/22/19 08:25 Source of Information: Reports: Patient, Family History Limitations: Reports: No Limitations - History of Present Illness INITIAL COMMENTS - FREE TEXT/NARRATIVE: This 69 yo female patient was brought to the ED by [facility] due to increased pain in her right lower extremity. The patient has had numerous visits for pain in her left lower extremity. According to her primary care provider, the patient has a sarcoma affecting her left sciatic nerve with mets to the lungs and back. Prior to transfer, the patient was given an oral dose of Dilaudid (24 mg) and her Fentanyl patches (300 mg) were changed with an increase in dose. The patient was recently discharged from a detention facility, but her pain has not been under control. The patient's daughter reports the patient was up for most of the night attempting to change positions. The patient had attempted to get comfortable by sitting in different chairs and changing from sitting, to standing and using her walker to support her weight. The patient has been been seen by Dr. Cadena and Dr. Barber as part of her treatments through [facility]. 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 ) Left Leg Pain Score (Numeric/FACES): 10 - Related Data Allergies Allergy/AdvReac Type Severity Reaction Status Date / Time hydrocodone AdvReac Mild Nausea and Verified 11/22/19 08:08 Vomiting nitrofurantoin AdvReac Mild Nausea Verified 11/22/19 08:08 Home Meds: Home Meds Pantoprazole Sodium 40 mg PO BID 04/27/14 [History] Levothyroxine 50 mcg PO DAILY 07/25/19 [History] Acetaminophen [Acetaminophen Extra Strength] 2 tab PO TID PRN 11/18/19 [History] Gabapentin [Neurontin] 100 mg PO TID 11/18/19 [History] HYDROmorphone [Dilaudid] 24 mg PO Q3H PRN 11/18/19 [History] Lidocaine 5% [Lidoderm 5%] 1 patch TOP DAILY PRN 11/18/19 [History] fentaNYL [Duragesic] 200 mcg TD Q72H MDD 200 mcg/hr 11/18/19 [History] polyethylene glycoL 3350 [MiraLAX] 17 gm PO DAILY 11/18/19 [History] fentaNYL [Duragesic] 2 patch TOP Q72H 11/22/19 [History] Past Medical History HEENT History: Reports: Impaired Vision Other HEENT History: wears glasses Cardiovascular History: Reports: Heart Valve Replacement, Hypertension Respiratory History: Reports: None Gastrointestinal History: Reports: GERD Genitourinary History: Reports: Retention, 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: Musculoskeletal History: Reports: Arthritis, Back Pain, Chronic, Osteoarthritis , RA, Other (See Below) Neurological History: Reports: CVA, Vertigo Psychiatric History: Reports: None Endocrine/Metabolic History: Reports: Hypothyroidism Hematologic History: Reports: None Immunologic History: Reports: None Oncologic (Cancer) History: Reports: Other (See Below) Other Oncologic History: cancer in the left leg/hip area, does not know what kind of cancer Dermatologic History: Reports: None - Infectious Disease History Infectious Disease History: Reports: Chicken Pox, Rheumatic Fever - Past Surgical History Head Surgeries/Procedures: Reports: None HEENT Surgical History: Reports: Tonsillectomy Cardiovascular Surgical History: Reports: Valve Replacement, Other (See Below) Other Cardiovascular Surgeries/Procedures: Whipple, artifical valve GI Surgical History: Reports: Colonoscopy Neurological Surgical History: Reports: Lumbar Spine Other Neurological Surgeries/Procedures: fused Musculoskeletal Surgical History: Reports: Other (See Below) Other Musculoskeletal Surgeries/Procedures:: Back Surgery Fused L4-L5 Social & Family History - Family History Family Medical History: Noncontributory - Tobacco Use Smoking Status *Q: Former Smoker Used Tobacco, but Quit: Yes Month/Year Tobacco Last Used: 11/2001 - Caffeine Use Caffeine Use: Reports: Coffee - Recreational Drug Use Recreational Drug Use: No - Living Situation & Occupation Living situation: Reports: , with Spouse Occupation: Retired ED ROS GENERAL - Review of Systems Review Of Systems: Comprehensive ROS is negative, except as noted in HPI. ED EXAM, GENERAL - Physical Exam Exam: See Below Exam Limited By: No Limitations General Appearance: Alert, WD/WN, Severe Distress Eye Exam: Bilateral Eye: EOMI, Normal Inspection, PERRL Ears: Normal External Exam, Normal Canal, Hearing Grossly Normal, Normal TMs Nose: Normal Inspection, Normal Mucosa, No Blood Throat/Mouth: Normal Inspection, Normal Lips, Normal Teeth, Normal Gums, Normal Oropharynx, Normal Voice, No Airway Compromise Head: Atraumatic, Normocephalic Neck: Normal Inspection, Supple, Non-Tender, Full Range of Motion Respiratory/Chest: No Respiratory Distress, Lungs Clear, Normal Breath Sounds, No Accessory Muscle Use, Chest Non-Tender Cardiovascular: Normal Peripheral Pulses, Regular Rate, Rhythm, No Edema, No Gallop, No JVD, No Murmur, No Rub GI/Abdominal: Normal Bowel Sounds, Soft, Non-Tender, No Organomegaly, No Distention, No Abnormal Bruit, No Mass, Pelvis Stable (Female) Exam: Deferred Rectal (Female) Exam: Deferred Back Exam: Paraspinal Tenderness (lower back), Vertebral Tenderness (lower back) Extremities: Leg Pain (left buttock, left lateral leg pain) Neurological: Alert, Oriented, Abnormal Gait (due to lower back and left leg pain) Psychiatric: Anxious Skin Exam: Warm, Dry, Intact, Normal Color, No Rash Lymphatic: No Adenopathy Course - Vital Signs Last Recorded V/S: Last Vital Signs Temp 36.5 C 11/22/19 08:45 Pulse 93 11/22/19 09:00 Resp 16 11/22/19 09:00 BP 134/71 11/22/19 09:00 Pulse Ox 97 11/22/19 09:00 - Orders/Labs/Meds Orders: Active Orders 24 hr Category Date Time Status Parikh Catheter Insertion [Insert Urinary Catheter] [OM. Care 11/22/19 09:00 Ordered PC] Q24H Urinary Catheter Assessment [RC] ASDIRECTED Care 11/22/19 08:59 Ordered Sodium Chloride 0.9% [Normal Saline] 1,000 ml Med 11/22/19 08:45 Active IV ASDIRECTED Medication Orders Sodium Chloride (Normal Saline) 1,000 mls @ 999 mls/hr IV ASDIRECTED SAÚL Last Admin: 11/22/19 08:32 Dose: 999 mls/hr Meds: Medications Generic Name Dose Route Start Last Admin Trade Name Freq PRN Reason Stop Dose Admin Sodium Chloride 1,000 mls @ 999 mls/hr 11/22/19 08:45 11/22/19 08:32 Normal Saline IV 999 mls/hr ASDIRECTED SAÚL Administration Discontinued Medications Generic Name Dose Route Start Last Admin Trade Name Lindsay PRN Reason Stop Dose Admin Dexamethasone 4 mg 11/22/19 09:12 11/22/19 09:20 Dexamethasone IVPUSH 11/22/19 09:13 4 mg ONETIME ONE Administration Hydromorphone HCl 1 mg 11/22/19 08:16 11/22/19 08:20 Dilaudid IVPUSH 11/22/19 08:17 1 mg ONETIME ONE Administration Lorazepam 1 mg 11/22/19 08:57 11/22/19 09:02 Ativan IVPUSH 11/22/19 08:58 1 mg ONETIME ONE Administration Departure - Departure Time of Disposition: 10:05 Disposition: Home, Self-Care 01 Condition: Serious Clinical Impression: Pain management - Discharge Information *PRESCRIPTION DRUG MONITORING PROGRAM REVIEWED*: Not Applicable *COPY OF PRESCRIPTION DRUG MONITORING REPORT IN PATIENT NIKOLAI: Not Applicable Forms: Interfacility Transfer EMTALA Care Plan Goals: Discussed the patient's history, examination, treatments and current symptoms with Dr. Brian. Dr. Brian accepted the patient for continued evaluation and further management. The patient will be transported by [facility]. Sepsis Event Note - Evaluation Sepsis Screening Result: No Definite Risk - Focused Exam Vital Signs: Vital Signs Temp Pulse Resp BP BP Pulse Ox 11/22/19 09:00 93 16 134/71 97 11/22/19 08:45 36.5 C 102 H 20 98/45 L 94 L 11/22/19 08:30 97 76/56 L 11/22/19 08:04 36.2 C 97 26 H 97 Date Exam was Performed: 11/22/19 Time Exam was Performed: 10:05 - My Orders Last 24 Hours: My Active Orders 11/22/19 08:59 Urinary Catheter Assessment [RC] ASDIRECTED 11/22/19 09:00 Parikh Catheter Insertion [Insert Urinary Catheter] [OM.PC] Q24H - Assessment/Plan Last 24 Hours: My Active Orders 11/22/19 08:59 Urinary Catheter Assessment [RC] ASDIRECTED 11/22/19 09:00 Parikh Catheter Insertion [Insert Urinary Catheter] [OM.PC] Q24H
== END 2019-11-22 10:40 | disposition critical access hospital (66) ==
LOC: DL.ED 09:34
DX: M79.605 Pain in left leg (principal); M54.5 Low back pain; I10 Essential (primary) hypertension; K21.9 Gastro-esophageal reflux disease without esophagitis; M06.9 Rheumatoid arthritis, unspecified; Z86.73 Personal history of transient ischemic attack (TIA), and cerebral infarction without residual deficits; E03.9 Hypothyroidism, unspecified; Z87.891 Personal history of nicotine dependence; Z88.5 Allergy status to narcotic agent; Z88.8 Allergy status to other drugs, medicaments and biological substances; Z79.899 Other long term (current) drug therapy
CPT/HCPCS: 51702; 96361; 96374; 96375; 99283; J1100; J1170; J2060; J7030